=== PATIENT | male | born 1955 | race Caucasian/White ===

== ENCOUNTER 2017-01-19 13:11 | Inpatient (IN) | payer MEDICARE ==
[~2017-01-19] VITALS: Ht 185.4 cm; Wt 121.8 kg
[~2017-01-19 13:11] MED LIST: HYDR10TA16 PO; LISI-366 PO
[2017-01-19 13:28] VITALS: BP 114/69; PULSE 74; RESP 18; O2SAT 97
[2017-01-19] MEDS ORDERED: SODIUM CHLORIDE 0.9% FLUSH 10 ML FLUSH IVF PRN (13:30)
--- NOTE | 2017-01-19 14:06 | RADRPT ---
EXAM DATE/TIME: 01/19/2017 14:01 [facility] COMPARISON: No previous studies available for comparison. INDICATIONS : Chest pain. MEDICAL HISTORY : Skin cancer. SURGICAL HISTORY : None. ENCOUNTER: Initial ACUITY: 1 day PAIN SCORE: 3/10 LOCATION: Left upper chest FINDINGS: A single view of the chest demonstrates the lungs to be symmetrically aerated without evidence of mas s, infiltrate or effusion. The cardiomediastinal contours are unremarkable. Osseous structures are intact. CONCLUSION: No evidence of acute cardiopulmonary disease. Michele Rosenbaum MD on January 19, 2017 at 14:03 Board Certified Radiologist. This report was verified electronically.
[2017-01-19 14:08] LABS: AUTOMATED NEUTROPHIL # 5.5 TH/MM3 (1.8-7.7); BASOPHIL % 0.4 % (0.0-2.0); EOSINOPHIL # 0.1 TH/MM3 (0-0.4); EOSINOPHIL % 1.7 % (0.0-4.0); HEMATOCRIT 37.8 % (39.0-51.0); HEMOGLOBIN 12.6 GM/DL (13.0-17.0); LYMPH % 14.8 % (9.0-44.0); LYMPHOCYTE # 1.1 TH/MM3 (1.0-4.8); MEAN CELL VOLUME 93.3 FL (80.0-100.0); MEAN CORPUSCULAR HGB CONC 33.3 % (32.0-36.0); MEAN PLATELET VOLUME 9.1 FL (7.0-11.0); MONO % 8.6 % (0.0-8.0); MONOCYTE # 0.6 TH/MM3 (0-0.9); NEUT % 74.5 % (16.0-70.0); PLATELET COUNT 233 TH/MM3 (150-450); RED BLOOD COUNT 4.05 MIL/MM3 (4.50-5.90); RED CELL DISTRIBUTION WIDTH 13.8 % (11.6-17.2); WHITE BLOOD COUNT 7.3 TH/MM3 (4.0-11.0)
[2017-01-19 14:29] LABS: TROPONIN I 0.07 NG/ML (0.02-0.05)
--- NOTE | 2017-01-19 14:54 | PD ---
HPI Chief Complaint: Dizziness Time Seen by Provider: 13:30 Travel History International Travel<30 days: No Contact w/Intl Traveler<30days: No Traveled to known affect area: No History of Present Illness HPI This patient was at a junkyard trying to salvage car parts. He was lying underneath a car for while. When he stood up he felt lightheaded and dizzy. He then developed a left upper chest discomfort and became diaphoretic. This lasted for several minutes and resolved spontaneously. There were no alleviating factors. He did not have syncope. He denies head injury. Duration was several minutes. He is currently pain-free. No exacerbating factors. He denies history of cardiac disease. His were of moderate severity. PFSH Past Medical History Arthritis: No Asthma: No Autoimmune Disease: No Blood Disorders: No Anxiety: Yes Depression: Yes Heart Rhythm Problems: No Cancer: Yes (SKIN ,NECK) Cardiovascular Problems: Yes (htn ) High Cholesterol: No Chemotherapy: No Chest Pain: No Congestive Heart Failure: No COPD: No Cerebrovascular Accident: No Diabetes: No Diminished Hearing: No Endocrine: No GERD: No Glaucoma: No Genitourinary: No Headaches: No Hepatitis: No Hiatal Hernia: No Hypertension: Yes Immune Disorder: No Kidney Stones: No Musculoskeletal: No Neurologic: No Psychiatric: Yes Respiratory: Yes Myocardial Infarction: No Radiation Therapy: No Renal Failure: No Seizures: No Sickle Cell Disease: No Sleep Apnea: Yes Thyroid Disease: No Ulcer: No Past Surgical History Abdominal Surgery: No AICD: No Cardiac Surgery: No Ear Surgery: No Endocrine Surgery: No Eye Surgery: No Genitourinary Surgery: No Gynecologic Surgery: No Joint Replacement: No Oral Surgery: No Pacemaker: No Thoracic Surgery: No Other Surgery: Yes (neck skin ca ) Social History Alcohol Use: No Tobacco Use: No Substance Use: No Allergies-Medications (Allergen,Severity, Reaction): Coded Allergies: No Known Allergies (Verified , 10/05/11) Reported Meds & Prescriptions Reported Meds & Active Scripts Active Reported Lortab 10/500 (Acetaminophen/Hydrocodone Bitart) 10 Mg/500 Mg Tab 1 Tab PO Q6HPRN FOR PAIN Lisinopril 40 Mg Tab 40 Mg PO DAILY Review of Systems General / Constitutional: No: Fever Eyes: No: Visual changes HENT: Positive: Lightheadedness, No: Headaches Cardiovascular: Positive: Chest Pain or Discomfort, Diaphoresis Respiratory: No: Shortness of Breath Gastrointestinal: No: Abdominal Pain Genitourinary: No: Dysuria Musculoskeletal: No: Pain Skin: No Rash Neurologic: No: Weakness Psychiatric: No: Depression Endocrine: No: Polydipsia Hematologic/Lymphatic: No: Easy Bruising Physical Exam Narrative GENERAL: Well-nourished, well-developed patient in no apparent distress. SKIN: Focused skin assessment reveals multiple surgical scars from his skin cancer history. Skin is Warm and dry. HEAD: Atraumatic. Normocephalic. EYES: Pupils equal and round. No scleral icterus. No injection or drainage. ENT: No nasal bleeding or discharge. Mucous membranes pink and moist. NECK: Trachea midline. No JVD. CARDIOVASCULAR: Regular rate and rhythm. No murmur appreciated. RESPIRATORY: No accessory muscle use. Clear to auscultation. Breath sounds equal bilaterally. GASTROINTESTINAL: Abdomen soft, non-tender, nondistended. Hepatic and splenic margins not palpable. MUSCULOSKELETAL: No obvious deformities. No clubbing. No cyanosis. No edema. NEUROLOGICAL: Awake and alert. No obvious cranial nerve deficits. Motor grossly within normal limits. Normal speech. PSYCHIATRIC: Appropriate mood and affect; insight and judgment normal. Data Data Last Documented VS Vital Signs Date Time Temp Pulse Resp B/P (MAP) Pulse Ox O2 Delivery O2 Flow Rate FiO2 01/19/17 13:33 77 01/19/17 13:28 18 114/69 (84) 97 Orders Orders Electrocardiogram (01/19/17 13:29) Complete Blood Count With Diff (01/19/17 13:29) Ckmb (Isoenzyme) Profile (01/19/17 13:29) Troponin I (01/19/17 13:29) Ecg Monitoring (01/19/17 13:29) Iv Access Insert/Monitor (01/19/17 13:29) Oximetry (01/19/17 13:29) Sodium Chloride 0.9% Flush (Ns Flush) (01/19/17 13:30) Basic Metabolic Panel (Bmp) (01/19/17 13:43) Chest, Single Ap (01/19/17 ) Admit Order (Ed Use Only) (01/19/17 15:50) Labs Laboratory Tests Test 01/19/17 13:45 01/19/17 13:54 White Blood Count 7.3 TH/MM3 Red Blood Count 4.05 MIL/MM3 Hemoglobin 12.6 GM/DL Hematocrit 37.8 % Mean Corpuscular Volume 93.3 FL Mean Corpuscular Hemoglobin 31.0 PG Mean Corpuscular Hemoglobin Concent 33.3 % Red Cell Distribution Width 13.8 % Platelet Count 233 TH/MM3 Mean Platelet Volume 9.1 FL Neutrophils (%) (Auto) 74.5 % Lymphocytes (%) (Auto) 14.8 % Monocytes (%) (Auto) 8.6 % Eosinophils (%) (Auto) 1.7 % Basophils (%) (Auto) 0.4 % Neutrophils # (Auto) 5.5 TH/MM3 Lymphocytes # (Auto) 1.1 TH/MM3 Monocytes # (Auto) 0.6 TH/MM3 Eosinophils # (Auto) 0.1 TH/MM3 Basophils # (Auto) 0.0 TH/MM3 CBC Comment DIFF FINAL Differential Comment Total Creatine Kinase 65 U/L Troponin I 0.07 NG/ML Blood Urea Nitrogen 26 MG/DL Creatinine 1.57 MG/DL Random Glucose 111 MG/DL Calcium Level 9.3 MG/DL Sodium Level 141 MEQ/L Potassium Level 4.4 MEQ/L Chloride Level 105 MEQ/L Carbon Dioxide Level 22.8 MEQ/L Anion Gap 13 MEQ/L Estimat Glomerular Filtration Rate 45 ML/MIN MDM Medical Decision Making Medical Screen Exam Complete: Yes Emergency Medical Condition: Yes Medical Record Reviewed: Yes Differential Diagnosis Differential diagnosis includes VA, angina, pericarditis, pleurisy, GERD, anxiety. Narrative Course I have reviewed the patient's electronic medical record. IV placed I reviewed the EKG which shows sinus rhythm and no acute ST elevation I reviewed the chest x-ray which is normal Extended cardiac monitoring shows sinus rhythm without ectopy CBC is normal Metabolic profile is normal CK is normal Troponin is 0.07, minimal elevation probable no clinical significance Coagulation studies are normal Patient will be a 23 hour observation on telemetry to rule out cardiac cause of his symptoms. He has a presyncopal episode. I reviewed with the hospitalist Diagnosis Primary Impression: Chest pain in adult Additional Impression: Pre-syncope Admitting Information Admitting Physician Requests: Observation Edilberto Zafar MD Jan 19, 2017 14:54
[2017-01-19 14:57] LABS: BICARBONATE 22.8 MEQ/L (21.0-32.0); CALCIUM 9.3 MG/DL (8.5-10.1); CREATININE 1.57 MG/DL (0.60-1.30)
--- NOTE | 2017-01-19 16:09 | HHI.HP ---
[facility] Dominik Morse DO Admission Diagnosis chest pain, presyncopal episode Diagnoses: Travel History International Travel<30 Days: No Contact w/Intl Traveler <30 Da: No Traveled to Known Affected Are: No History of Present Illness Patient is 61-year-old male with past medical history of hypertension, depression, chronic back and knee pain, squamous cell carcinoma presents to the emergency room because of chest pain. Patient states that he was at the junk yard getting some used car parts fand was underneath a car taking out a bolt when he suddenly felt lightheaded and dizzy. He sat down for a few minutes then became diaphoretic and started experiencing pain on the left shoulder. He also noted some shortness of breath. He denied any nausea or vomiting or abdominal pain. He also said that he saw "stars ". He states that he was sitting in the shade and there was a very nice breeze however he was still diaphoretic. He denies any burning with urination or increased urinary frequency. Currently he is chest pain-free. He has never had a heart attack in the past. He has no other complaints. He denies any sore throat, runny nose , cough. 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 Past Surgical History Removal of lymph nodes and salivary gland due to metastatic squamous Carcinoma Right knee surgery Reported Medications Reported Meds & Active Scripts Active Reported Tramadol (Tramadol HCl) 50 Mg Tab 50 Mg PO Q4H PRN Allergies: Coded Allergies: No Known Allergies (Verified , 10/05/11) Family History Mother is 83 living has a history of [place] and CHF. Father from CHF. Brother and had diabetes Social History Denies any smoking history, denies illegal drug use or alcohol use. Physical Exam Vital Signs Vital Signs Date Time Temp Pulse Resp B/P (MAP) Pulse Ox O2 Delivery O2 Flow Rate FiO2 01/19/17 13:33 77 01/19/17 13:28 74 18 114/69 (92) 97 Physical Exam GENERAL: This is a well-nourished, well-developed patient, in no apparent distress. SKIN: Well-healed scar on the right side of the neck and on the right shoulder HEAD: Atraumatic. Normocephalic. No temporal or scalp tenderness. EYES: Pupils equal round and reactive. Extraocular motions intact. No scleral icterus. No injection or drainage. ENT: Nose without drainage. Throat without erythema, tonsillar hypertrophy or exudate. Mucous membranes somewhat dry. Uvula midline. Airway patent. NECK: Trachea midline. No JVD or lymphadenopathy. Supple, nontender, no meningeal signs. CARDIOVASCULAR: Regular rate and rhythm without murmurs. Nonreproducible chest pain. RESPIRATORY: Clear to auscultation. Breath sounds equal bilaterally. No wheezes GASTROINTESTINAL: Abdomen soft, non-tender, nondistended. No palpable masses. No guarding. MUSCULOSKELETAL: Extremities without edema. No joint tenderness, effusion, or edema noted. No calf tenderness. Negative Homans sign bilaterally. NEUROLOGICAL: Awake and alert. Cranial nerves II through XII intact. Motor and sensory grossly within normal limits. Five out of 5 muscle strength in all muscle groups. Normal speech. Laboratory Laboratory Tests Test 01/19/17 13:45 01/19/17 13:54 White Blood Count 7.3 Red Blood Count 4.05 Hemoglobin 12.6 Hematocrit 37.8 Mean Corpuscular Volume 93.3 Mean Corpuscular Hemoglobin 31.0 Mean Corpuscular Hemoglobin Concent 33.3 Red Cell Distribution Width 13.8 Platelet Count 233 Mean Platelet Volume 9.1 Neutrophils (%) (Auto) 74.5 Lymphocytes (%) (Auto) 14.8 Monocytes (%) (Auto) 8.6 Eosinophils (%) (Auto) 1.7 Basophils (%) (Auto) 0.4 Neutrophils # (Auto) 5.5 Lymphocytes # (Auto) 1.1 Monocytes # (Auto) 0.6 Eosinophils # (Auto) 0.1 Basophils # (Auto) 0.0 CBC Comment DIFF FINAL Differential Comment Total Creatine Kinase 65 Troponin I 0.07 Blood Urea Nitrogen 26 Creatinine 1.57 Random Glucose 111 Calcium Level 9.3 Sodium Level 141 Potassium Level 4.4 Chloride Level 105 Carbon Dioxide Level 22.8 Anion Gap 13 Estimat Glomerular Filtration Rate 45 Result Diagram: 01/19/17 1345 01/19/17 1354 Imaging Last Impressions Chest X-Ray 01/19/17 0000 Signed Impressions: Service Date/Time: Thursday, January 19, 2017 14:01 - CONCLUSION: No evidence of acute cardiopulmonary disease. MD Jose Luis Echeverria VTE Risk Assessment Caprini VTE Risk Assessment: Mod/High Risk (score >= 2) Caprini Risk Assessment Model Point Value = 1 Point Value = 2 Point Value = 3 Point Value = 5 Age 41-60 Minor surgery BMI > 25 kg/m2 Swollen legs Varicose veins or History of unexplained or recurrent spontaneous Oral contraceptives or hormone replacement Sepsis (< 1 month) Serious lung disease, including pneumonia (< 1 month) Abnormal pulmonary function Acute myocardial infarction Congestive heart failure (< 1 month) History of inflammatory bowel disease Medical patient at bed rest Age 61-74 Arthroscopic surgery Major open surgery (> 45 min) Laparoscopic surgery (> 45 min) Malignancy Confined to bed (> 72 hours) Immobilizing plaster cast Central venous access Age >= 75 History of VTE Family history of VTE Factor V Leiden Prothrombin [id number] Lupus anticoagulant Anticardiolipin antibodies Elevated serum homocysteine Heparin-induced thrombocytopenia Other congenital or acquired thrombophilia Stroke (< 1 month) Elective arthroplasty Hip, pelvis, or leg fracture Acute spinal cord injury (< 1 month) Prophylaxis Regimen Total Risk Factor Score Risk Level Prophylaxis Regimen 0-1 Low Early ambulation 2 Moderate Order ONE of the following: *Sequential Compression Device (SCD) *Heparin 5000 units SQ BID 3-4 Higher Order ONE of the following medications: *Heparin 5000 units SQ TID *Enoxaparin/Lovenox 40 mg SQ daily (WT < 150 kg, CrCl > 30 mL/min) *Enoxaparin/Lovenox 30 mg SQ daily (WT < 150 kg, CrCl > 10-29 mL/min) *Enoxaparin/Lovenox 30 mg SQ BID (WT < 150 kg, CrCl > 30 mL/min) AND/OR *Sequential Compression Device (SCD) 5 or more Highest Order ONE of the following medications: *Heparin 5000 units SQ TID (Preferred with Epidurals) *Enoxaparin/Lovenox 40 mg SQ daily (WT < 150 kg, CrCl > 30 mL/min) *Enoxaparin/Lovenox 30 mg SQ daily (WT < 150 kg, CrCl > 10-29 mL/min) *Enoxaparin/Lovenox 30 mg SQ BID (WT < 150 kg, CrCl > 30 mL/min) AND *Sequential Compression Device (SCD) Assessment and Plan Assessment and Plan Chest pain: Initial troponin 0.07. We'll trend cardiac enzymes. Monitor on telemetry. Patient did have chest pain with radiation to left shoulder upon presentation and was diaphoretic, due to his elevated troponin I we'll go ahead and consult cardiology for further evaluation and recommendation. I have reviewed EKG and it shows sinus rhythm with no ST elevations. Morphine, nitroglycerin as needed for chest pain. I will give him a dose of aspirin now and daily. I have added Coreg 3.25 mg by mouth twice a day. Hypertension: Patient states he is on lisinopril however Remember the dose. His will call the nurse and give her history of some medication. Hold lisinopril for now due to RENA. clonidine prn BP>160/90 RENA: NS@84ml/hr. monitor Cr closely. Repeat BMP in AM. encourage po hydration DVT proph: lovenox Awaiting for RN to enter med rec prior to resuming pt's home meds. Code Status full Discussed Condition With patient, daughter and ED physician Nichole Solan MD Jan 19, 2017 16:09
[2017-01-19 16:12] VITALS: BP 119/62; PULSE 64; RESP 12; O2SAT 98
[2017-01-19] MEDS ORDERED: TRAM50TA PO (16:12)
[2017-01-19] MEDS ORDERED: SODIUM CHLORIDE 0.9% FLUSH 10 ML FLUSH IV FLUSH PRN (16:30)
[2017-01-19] MEDS ORDERED: LACTULOSE SYRUP 20 GM/30 ML CUP PO PRN (16:30)
[2017-01-19] MEDS ORDERED: SENNOSIDES 8.6 MG TAB PO PRN (16:30)
[2017-01-19] MEDS ORDERED: MAGNESIUM HYDROXIDE SUSP 30 ML CUP PO PRN (16:30)
[2017-01-19] MEDS ORDERED: BISACODYL 10 MG SUPP RECTAL PRN (16:30)
[2017-01-19] MEDS ORDERED: ONDANSETRON HCL 4 MG/2 ML VIAL IVP PRN (16:30)
[2017-01-19] MEDS ORDERED: ASPIRIN 325 MG TAB PO ONE (16:30)
[2017-01-19] MEDS ORDERED: NALOXONE HCL 0.4 MG/ML AMP IV PUSH PRN (16:30)
[2017-01-19] MEDS ORDERED: LISI40TA PO (16:38)
[2017-01-19] MEDS ORDERED: ESCI20TA PO (16:38)
[2017-01-19] MEDS ORDERED: LISI-515 PO (16:38)
[2017-01-19] MEDS ORDERED: cloNIDine HCL 0.1 MG TAB PO PRN (16:45)
[2017-01-19] MEDS ORDERED: ENOXAPARIN SODIUM 40 MG/0.4 ML SYRINGE SQ SCH (17:00)
[2017-01-19] MEDS ORDERED: NITROGLYCERIN 2% OINT 1 GM PACKET TOPICAL PRN (17:00)
[2017-01-19 17:26] VITALS: BP 137/79; PULSE 63; RESP 16; TEMP 97.8; O2SAT 98
--- NOTE | 2017-01-19 19:21 | RADRPT ---
EXAM DATE/TIME: 01/19/2017 18:41 [facility] COMPARISON: No previous studies available for comparison. INDICATIONS : Syncope. MEDICAL HISTORY : Hypertension. Carcinoma, squamous cell. Sleep apnea. Psychiatric problems. SURGICAL HISTORY : Tumor removed on right side of neck. ENCOUNTER: Initial ACUITY: 1 day PAIN SCORE: 0/10 LOCATION: Bilateral neck PEAK SYSTOLIC VELOCITIES (cm/sec): ICA/CCA RATIO: Right: 1.0 Left: 1.2 ICA: Right: 98 Left: 106 CCA: Right: 94 Left: 92 ECA: Right: 161 Left: 165 VERTEBRAL: Right: 41 antegrade Left: 42 antegrade Elevated flow velocities and ICA/CCA ratios have been found to correlate with increased degrees of vessel stenosis, calculated as percentage of diameter relative to a normal segment of distal ICA/CCA FINDINGS: RIGHT CAROTID: No significant stenosis is visualized. The waveforms are within normal limits. LEFT CAROTID: No significant stenosis is visualized. The waveforms are within normal limits. VERTEBRAL ARTERIES: Antegrade flow is seen in both vertebral arteries. MISCELLANEOUS: None. CONCLUSION: 1. No evidence for hemodynamically significant stenosis of either carotid artery. 2. Antegrade flow in the bilateral vertebral arteries. Ever Corea MD on January 19, 2017 at 19:19 Board Certified Radiologist. This report was verified electronically.
[2017-01-19 19:30] VITALS: PULSE 63
[2017-01-19 19:33] VITALS: BP 128/76; PULSE 64; RESP 18; TEMP 98.3; O2SAT 97
[2017-01-19] MEDS: SODIUM CHLOR 0.9% 1000 ML INJ 1,000 ML IV SCH (20:07)
--- NOTE | 2017-01-19 20:54 | MB ---
cc: BRAD REID M.D. DATE OF CONSULTATION 01/19/17 HISTORY OF PRESENT ILLNESS Santy is a very pleasant 61-year-old gentleman with history of hypertension was working on a car today, stood up quickly, developed significant lightheadedness and left arm discomfort, also some chest discomfort and shortness of breath. His friends said he "did not look." He therefore went to the [facility]. He also notes significant diaphoresis episode lasted several minutes, resolved spontaneously. He did not have full syncope. He otherwise denies any fevers, chills, cough, GI or bleeding, PND, orthopnea. PAST MEDICAL HISTORY Includes anxiety, depression, skin and neck cancer, right carotid endarterectomy with significant adenopathy associated with a carotid stenosis, history of hypertension, recent lymph node biopsy, history of sleep apnea, history of skin cancer in the neck. SOCIAL HISTORY Denies tobacco or alcohol use. ALLERGIES None. MEDICATIONS Prior to admission 1. Lortab. 2. Lisinopril 40 daily. Medications in the hospital 1. Aspirin 325 daily. 2. Carvedilol 3.25 q. 12 hours. 3. Lovenox 40 subcu q. 24 hours. 4. Half inch nitro paste q. 6 hours. PHYSICAL EXAMINATION VITAL SIGNS: Blood pressure 137/79, pulse 63, temperature 97.8, respiratory rate 16. GENERAL: He is alert and oriented times three, in no distress. NECK: Supple. No JVD or bruit. CARDIOVASCULAR: S1-S2. No murmurs, rubs or gallops. LUNGS: Clear to auscultation bilaterally. ABDOMEN: Soft, nontender, nondistended. Positive bowel sounds. EXTREMITIES: No lower extremity edema. LABORATORY DATA White count 7.3, hemoglobin 12.6, hematocrit 37.8, platelet count 233. Troponin is 0.07. CK 65, sodium 141, potassium 4.4, chloride 105, bicarb 22.8, BUN 26, creatinine 1.57. CARDIOLOGY STUDIES EKG shows normal sinus rhythm. Borderline left anterior fascicular block, possible lateral ischemia. IMAGING STUDIES Chest x-ray no evidence of acute cardiopulmonary disease. FINAL DIAGNOSIS 1. Non-STEMI. 2. Near syncope. 3. Dyspnea. 4. Acute renal failure. 5. Dyspnea. 6. Chronic renal insufficiency. 7. History of carotid stenosis. 8. History of skin cancer complicated by carotid stenosis. 9. Anemia. DISCUSSION At this point in time it is indeterminate whether the patient truly has a non-STEMI versus nonspecifically elevated troponin due to chronic renal insufficiency and/or acute renal failure, however he does have multiple risk factors including male gender, age greater than 45, chronic renal insufficiency and hypertension as well as lateral ischemic changes on his EKG which gives him high pre-test probability for significant coronary artery disease. Therefore, I do think he should have left heart catheterization done electively on Saturday, January 20, 2017 assuming there are no significant findings on his neurologic workup. I do think he should have a neurology consult and carotid ultrasound, 2-D echo. He appears to be optimally medicated currently with aspirin, Coreg, nitro paste and DVT prophylaxis- Lovenox. Also, recommend continued telemetry. MD ALVIN Owen/CONG /6:09 PM /8:30 PM
[2017-01-19] MEDS: DOCUSATE SODIUM 50 MG/SENNA 8.6 MG TAB PO SCH (21:00)
[2017-01-19] MEDS: SODIUM CHLORIDE 0.9% FLUSH 10 ML FLUSH IV FLUSH SCH (21:00)
[2017-01-19 21:17] LABS: TROPONIN I 0.98 NG/ML (0.02-0.05)
[2017-01-19] MEDS: CARVEDILOL 3.125 MG TAB PO SCH (21:38)
[2017-01-19] MEDS: traMADol HCL 50 MG TAB PO PRN (22:58)
[2017-01-20] VITALS (19 sets, daily range): BP systolic 104–150; BP diastolic 53–80; PULSE 55–74; RESP 16–18; TEMP 97.8–99; O2SAT 95–100
[2017-01-20 01:44] LABS: TROPONIN I 0.7 NG/ML (0.02-0.05)
[2017-01-20] MEDS: SODIUM CHLOR 0.9% 1000 ML INJ 1,000 ML IV SCH ×3 (04:55→22:59)
[2017-01-20 08:41] LABS: CALCIUM 8.8 MG/DL (8.5-10.1); CREATININE 1.29 MG/DL (0.60-1.30)
[2017-01-20] MEDS ORDERED: HEPARIN SODIUM - IV 10,000 UNITS/10 ML VIAL IV ONE (08:45)
[2017-01-20] MEDS ORDERED: ASPIRIN 325 MG TAB PO SCH (09:00)
--- NOTE | 2017-01-20 09:07 | EKG ---
Date Performed: 01/19/2017 Time Performed: 13:46:27 PTAGE: 61 years EKG: Sinus rhythm WITH FIRST DEGREE AV BLOCK BORDERLINE LEFT AXIS DEVIATION NONSPECIFIC ST & T-WAVE ABNORMALITY Compar ed to prior tracing no significant change ABNORMAL ECG PREVIOUS TRACING : 04/12/2005 07.43 DOCTOR: Ernesto Crowe Interpretating Date/Time 01/20/2017 09:05:41
[2017-01-20] MEDS: ESCITALOPRAM OXALATE 20 MG TAB PO SCH (09:36)
[2017-01-20] MEDS: DOCUSATE SODIUM 50 MG/SENNA 8.6 MG TAB PO SCH ×2 (09:38→20:45)
[2017-01-20] MEDS: CARVEDILOL 3.125 MG TAB PO SCH ×2 (09:38→20:45)
[2017-01-20] MEDS: SODIUM CHLORIDE 0.9% FLUSH 10 ML FLUSH IV FLUSH SCH ×2 (09:39→20:45)
[2017-01-20 09:54] LABS: PROTHROMBIN TIME - PATIENT 11.4 SEC (9.8-11.6)
[2017-01-20 09:56] LABS: HEMATOCRIT 35.6 % (39.0-51.0); MEAN CELL VOLUME 92.3 FL (80.0-100.0); MEAN CORPUSCULAR HGB CONC 33.6 % (32.0-36.0); MEAN PLATELET VOLUME 9.3 FL (7.0-11.0); PLATELET COUNT 208 TH/MM3 (150-450); RED BLOOD COUNT 3.86 MIL/MM3 (4.50-5.90); RED CELL DISTRIBUTION WIDTH 13.5 % (11.6-17.2); WHITE BLOOD COUNT 7.1 TH/MM3 (4.0-11.0)
--- NOTE | 2017-01-20 10:21 | PD.CARD.PN ---
Subjective Subjective Remarks alert in nad, denies chest pain Objective Medications Current Medications Medications (Trade) Dose Ordered Sig/Edilberto Route Start Time Stop Time Status Last Admin (NS Flush) 2 ml UNSCH PRN IV FLUSH 01/19/17 16:30 (NS Flush) 2 ml BID IV FLUSH 01/19/17 21:00 01/20/17 09:39 (Zofran Inj) 4 mg Q6H PRN IVP 01/19/17 16:30 (Narcan Inj) 0.4 mg UNSCH PRN IV PUSH 01/19/17 16:30 (Nahed-Colace) 1 tab BID PO 01/19/17 21:00 01/20/17 09:38 (Milk Of Magnesia Liq) 30 ml Q12H PRN PO 01/19/17 16:30 (Senokot) 17.2 mg Q12H PRN PO 01/19/17 16:30 (Dulcolax Supp) 10 mg DAILY PRN RECTAL 01/19/17 16:30 (Lactulose Liq) 30 ml DAILY PRN PO 01/19/17 16:30 (Morphine Inj) 1 mg Q4H PRN IM 01/19/17 16:30 (Nitroglycerin 2% Oint) 0.5 inch Q6H PRN TOPICAL 01/19/17 17:00 (Aspirin) 325 mg DAILY PO 01/20/17 09:00 01/20/17 09:36 (Coreg) 3.125 mg Q12HR PO 01/19/17 21:00 01/20/17 09:38 (Catapres) 0.1 mg Q6H PRN PO 01/19/17 16:45 Sodium Chloride 1,000 ml @ 84 mls/hr [id number] IV 01/19/17 17:00 01/20/17 04:55 (Lexapro) 20 mg DAILY PO 01/20/17 09:00 01/20/17 09:36 (Ultram) 50 mg Q4H PRN PO 01/19/17 23:00 01/19/17 22:58 (Heparin Inj) 5,000 units UNSCH PRN IV 01/20/17 14:45 (Heparin Inj) 2,500 units UNSCH PRN IV 01/20/17 14:45 Heparin Sodium/ Dextrose 250 ml @ 10 mls/hr TITRATE PRN IV 01/20/17 08:45 Vital Signs / I&O Vital Signs Date Time Temp Pulse Resp B/P (MAP) Pulse Ox O2 Delivery O2 Flow Rate FiO2 01/20/17 07:33 98.2 60 18 117/66 (83) 95 01/20/17 04:49 98.6 57 18 104/53 (70) 95 01/20/17 03:43 55 01/20/17 00:12 18 01/20/17 00:08 98.1 61 18 112/57 (75) 96 01/20/17 00:04 59 01/19/17 19:33 98.3 64 18 128/76 (93) 97 01/19/17 19:30 63 01/19/17 17:33 (98) 01/19/17 17:26 97.8 63 16 137/79 (98) 98 01/19/17 16:12 64 12 119/62 (81) 98 Room Air 01/19/17 13:33 77 01/19/17 13:28 74 18 114/69 (84) 97 I/O 01/19/17 01/19/17 01/19/17 01/20/17 01/20/17 01/20/17 07:00 15:00 23:00 07:00 15:00 23:00 Intake Total 1120 ml Output Total 200 ml Balance 920 ml Intake Oral 120 ml IV Total 1000 ml Output Urine Total 200 ml # Voids 1 # Bowel Movements 0 Physical Exam GENERAL: SKIN: Warm and dry. HEAD: Normocephalic. EYES: No scleral icterus. No injection or drainage. NECK: Supple, trachea midline. No JVD or lymphadenopathy. CARDIOVASCULAR: Regular rate and rhythm without murmurs, gallops, or rubs. RESPIRATORY: Breath sounds equal bilaterally. No accessory muscle use. GASTROINTESTINAL: Abdomen soft, non-tender, nondistended. MUSCULOSKELETAL: No cyanosis, or edema. BACK: Nontender without obvious deformity. No CVA tenderness. Laboratory Laboratory Tests Test 01/19/17 13:45 01/19/17 13:54 01/19/17 20:22 01/20/17 01:00 White Blood Count 7.3 TH/MM3 Red Blood Count 4.05 MIL/MM3 Hemoglobin 12.6 GM/DL Hematocrit 37.8 % Mean Corpuscular Volume 93.3 FL Mean Corpuscular Hemoglobin 31.0 PG Mean Corpuscular Hemoglobin Concent 33.3 % Red Cell Distribution Width 13.8 % Platelet Count 233 TH/MM3 Mean Platelet Volume 9.1 FL Neutrophils (%) (Auto) 74.5 % Lymphocytes (%) (Auto) 14.8 % Monocytes (%) (Auto) 8.6 % Eosinophils (%) (Auto) 1.7 % Basophils (%) (Auto) 0.4 % Neutrophils # (Auto) 5.5 TH/MM3 Lymphocytes # (Auto) 1.1 TH/MM3 Monocytes # (Auto) 0.6 TH/MM3 Eosinophils # (Auto) 0.1 TH/MM3 Basophils # (Auto) 0.0 TH/MM3 CBC Comment DIFF FINAL Differential Comment Total Creatine Kinase 65 U/L 78 U/L 75 U/L Troponin I 0.07 NG/ML 0.98 NG/ML 0.70 NG/ML Blood Urea Nitrogen 26 MG/DL Creatinine 1.57 MG/DL Random Glucose 111 MG/DL Calcium Level 9.3 MG/DL Sodium Level 141 MEQ/L Potassium Level 4.4 MEQ/L Chloride Level 105 MEQ/L Carbon Dioxide Level 22.8 MEQ/L Anion Gap 13 MEQ/L Estimat Glomerular Filtration Rate 45 ML/MIN Test 01/20/17 08:04 01/20/17 09:20 01/20/17 09:37 Blood Urea Nitrogen 21 MG/DL Creatinine 1.29 MG/DL Random Glucose 91 MG/DL Calcium Level 8.8 MG/DL Sodium Level 141 MEQ/L Potassium Level 5.1 MEQ/L Chloride Level 108 MEQ/L Carbon Dioxide Level 26.0 MEQ/L Anion Gap 7 MEQ/L Estimat Glomerular Filtration Rate 56 ML/MIN Prothrombin Time 11.4 SEC Prothromb Time International Ratio 1.0 RATIO Activated Partial Thromboplast Time 25.5 SEC White Blood Count 7.1 TH/MM3 Red Blood Count 3.86 MIL/MM3 Hemoglobin 12.0 GM/DL Hematocrit 35.6 % Mean Corpuscular Volume 92.3 FL Mean Corpuscular Hemoglobin 31.0 PG Mean Corpuscular Hemoglobin Concent 33.6 % Red Cell Distribution Width 13.5 % Platelet Count 208 TH/MM3 Mean Platelet Volume 9.3 FL Assessment and Plan Problem List: (1) NSTEMI (non-ST elevated myocardial infarction) ICD Codes: I21.4 - Non-ST elevation (NSTEMI) myocardial infarction (2) Pre-syncope ICD Codes: R55 - Syncope and collapse Status: Acute (3) Chest pain in adult ICD Codes: R07.9 - Chest pain, unspecified Status: Acute Assessment and Plan 1.) NSTEMI - continue aspirin, assymptomatic, f/u neuology consult, [facility] 01/21/17 if no neurologic contraindications Ernesto Crowe MD Jan 20, 2017 10:21
[2017-01-20] MEDS: traMADol HCL 50 MG TAB PO PRN ×3 (11:08→20:46)
[2017-01-20] MEDS: HEPARIN-D5W 25,000 U/250 ML 250 ML IV PRN (11:20)
--- NOTE | 2017-01-20 13:11 | EKG ---
Date Performed: 01/19/2017 Time Performed: 19:45:42 PTAGE: 61 years EKG: Sinus rhythm WITH FIRST DEGREE AV BLOCK T-WAVE ABNORMALITY, CONSIDER LATERAL ISCHEMIA ABNORMAL ECG PREVIOUS TRACING : 01/19/2017 19.45 No significant change from previous tracing noted. DOCTOR: Sumeet Petersen Interpretating Date/Time 01/21/2017 07:09:50
--- NOTE | 2017-01-20 13:11 | EKG ---
Date Performed: 01/20/2017 Time Performed: 01:06:38 PTAGE: 61 years EKG: Sinus rhythm SEPTAL MYOCARDIAL INFARCTION T-WAVE ABNORMALITY, CONSIDER ANTEROLATERAL ISCHEMIA ABNORMAL ECG PREVIOUS TRACING : 01/19/2017 19.45 Compared to previous tracing, anterolateral T wave abnormal ity is now slightly more pronounced. DOCTOR: Sumeet Petersen Interpretating Date/Time 01/20/2017 13:10:16
--- NOTE | 2017-01-20 13:42 | HHI.PR ---
Subjective Remarks Follow up for NSTEMI. Patient is doing well currently. He was admitted due to chest pain, nausea, vomiting, diaphoresis, dizziness, lightheadedness. No fever , chills. Objective Vitals Vital Signs Date Time Temp Pulse Resp B/P (MAP) Pulse Ox O2 Delivery O2 Flow Rate FiO2 01/20/17 13:04 71 01/20/17 12:09 16 01/20/17 12:00 68 01/20/17 11:30 98.0 59 16 135/80 (98) 98 01/20/17 11:30 64 01/20/17 07:33 98.2 60 18 117/66 (83) 95 01/20/17 04:49 98.6 57 18 104/53 (70) 95 01/20/17 03:43 55 01/20/17 00:08 98.1 61 18 112/57 (75) 96 01/20/17 00:04 59 01/19/17 19:33 98.3 64 18 128/76 (93) 97 01/19/17 19:30 63 01/19/17 17:33 (98) 01/19/17 17:26 97.8 63 16 137/79 (98) 98 01/19/17 16:12 64 12 119/62 (81) 98 Room Air I/O 01/19/17 01/19/17 01/19/17 01/20/17 01/20/17 01/20/17 07:00 15:00 23:00 07:00 15:00 23:00 Intake Total 1120 ml Output Total 200 ml Balance 920 ml Intake Oral 120 ml IV Total 1000 ml Output Urine Total 200 ml # Voids 1 # Bowel Movements 0 Result Diagram: 01/20/17 0937 01/20/17 0804 Imaging Last Impressions Chest X-Ray 01/19/17 0000 Signed Impressions: Service Date/Time: Thursday, January 19, 2017 14:01 - CONCLUSION: No evidence of acute cardiopulmonary disease. Michele Rosenbaum MD Carotid Artery Ultrasound 01/19/17 0000 Signed Impressions: Service Date/Time: Thursday, January 19, 2017 18:41 - CONCLUSION: 1. No evidence for hemodynamically significant stenosis of either carotid artery. 2. Antegrade flow in the bilateral vertebral arteries. Ever Corea MD Objective Remarks GENERAL: AOX3. NAD. SKIN: Warm and dry. HEAD: Normocephalic. EYES: No scleral icterus. No injection or drainage. NECK: Supple, trachea midline. No JVD or lymphadenopathy. CARDIOVASCULAR: Regular rate and rhythm without murmurs, gallops, or rubs. RESPIRATORY: Breath sounds equal bilaterally. No accessory muscle use. GASTROINTESTINAL: Abdomen soft, non-tender, nondistended. MUSCULOSKELETAL: No cyanosis, or edema. BACK: Nontender without obvious deformity. No CVA tenderness. Procedures None. A/P Problem List: (1) NSTEMI (non-ST elevated myocardial infarction) ICD Code: I21.4 - Non-ST elevation (NSTEMI) myocardial infarction (2) HTN (hypertension) ICD Code: I10 - Essential (primary) hypertension Assessment and Plan Patient is 61-year-old male with past medical history of hypertension, depression, chronic back and knee pain, squamous cell carcinoma presents to the emergency room because of chest pain. Patient states that he was at the junk [place] getting some used car parts fand was underneath a car taking out a bolt when he suddenly felt lightheaded and dizzy. He sat down for a few minutes then became diaphoretic and started experiencing pain on the left shoulder. He also had dyspnea. He was subsequently admitted to the hospital. - NSTEMI - Troponins 0.07, 0.98, 0.70. Currently chest pain free. - Start heparin drip. - Heart healthy diet for now. NPO midnight except for meds. - Continue Aspirin 81mg, Carvedilol 3.125mg Q12hrs. NTG PRN for chest pain. - Will start Atorvastatin 80mg QHS - Appreciate cardiology input (Dr. Choco Crowe) - Pre-syncope - Carotid US unremarkable. I have discussed with neurology. Patient has no focal neurological deficits. - No further neurological work up at this point. Patient can proceed with Cardiac catheterization. - Depression - Continue Lexapro. Full code. Heparin drip. Breanne Mcfadden DO Jan 20, 2017 1:42 pm
[2017-01-20] MEDS ORDERED: ACETAMINOPHEN 325 MG TAB PO PRN (14:00)
[2017-01-20] MEDS ORDERED: HEPARIN SODIUM - IV 10,000 UNITS/10 ML VIAL IV PRN ×2 (14:45)
[2017-01-20] MEDS: ATORVASTATIN 80 MG TAB PO SCH (20:46)
[2017-01-21] VITALS (26 sets, daily range): BP systolic 105–151; BP diastolic 63–115; PULSE 50–76; RESP 14–18; TEMP 98.1–98.5; O2SAT 97–100
[2017-01-21 07:14] LABS: HEMATOCRIT 34.7 % (39.0-51.0); HEMOGLOBIN 11.6 GM/DL (13.0-17.0); MEAN CELL VOLUME 93.5 FL (80.0-100.0); MEAN CORPUSCULAR HEMOGLOBIN 31.2 PG (27.0-34.0); MEAN CORPUSCULAR HGB CONC 33.4 % (32.0-36.0); MEAN PLATELET VOLUME 9.6 FL (7.0-11.0); PLATELET COUNT 206 TH/MM3 (150-450); RED BLOOD COUNT 3.71 MIL/MM3 (4.50-5.90); RED CELL DISTRIBUTION WIDTH 13.4 % (11.6-17.2); WHITE BLOOD COUNT 8.2 TH/MM3 (4.0-11.0)
[2017-01-21 07:38] LABS: BICARBONATE 24.8 MEQ/L (21.0-32.0); CALCIUM 8.3 MG/DL (8.5-10.1); CREATININE 1.29 MG/DL (0.60-1.30)
[2017-01-21] MEDS: CARVEDILOL 3.125 MG TAB PO SCH ×2 (07:40→21:28)
[2017-01-21] MEDS: DOCUSATE SODIUM 50 MG/SENNA 8.6 MG TAB PO SCH ×2 (07:40→21:28)
[2017-01-21] MEDS: traMADol HCL 50 MG TAB PO PRN ×3 (07:40→18:20)
[2017-01-21] MEDS: ESCITALOPRAM OXALATE 20 MG TAB PO SCH (07:40)
[2017-01-21] MEDS: ASPIRIN 81 MG CHEW TAB CHEW SCH (07:41)
[2017-01-21] MEDS: SODIUM CHLORIDE 0.9% FLUSH 10 ML FLUSH IV FLUSH SCH ×2 (07:41→21:00)
[2017-01-21] MEDS: HEPARIN-D5W 25,000 U/250 ML 250 ML IV PRN (10:40)
--- NOTE | 2017-01-21 11:39 | HHI.PR ---
Subjective Remarks Pt feels well, hasn't had any chest pain since admission, no SOB, nausea or vomiting. Objective Vitals Vital Signs Date Time Temp Pulse Resp B/P (MAP) Pulse Ox O2 Delivery O2 Flow Rate FiO2 01/21/17 09:33 18 01/21/17 06:00 50 01/21/17 05:00 56 01/21/17 04:00 52 01/21/17 03:00 98.1 59 14 105/65 (78) 97 01/21/17 03:00 72 01/21/17 02:00 54 01/21/17 01:00 54 01/21/17 00:00 56 01/20/17 23:00 58 01/20/17 23:00 98.4 62 16 116/66 (83) 95 01/20/17 22:00 58 01/20/17 21:00 64 01/20/17 20:00 68 01/20/17 19:32 99.0 68 16 115/64 (81) 98 01/20/17 19:00 68 01/20/17 18:08 58 01/20/17 17:45 59 01/20/17 16:49 62 01/20/17 15:30 64 01/20/17 15:30 97.8 66 16 150/76 (100) 100 01/20/17 14:16 74 01/20/17 13:04 71 01/20/17 12:09 16 01/20/17 12:00 68 I/O 01/20/17 01/20/17 01/20/17 01/21/17 01/21/17 01/21/17 07:00 15:00 23:00 07:00 15:00 23:00 Intake Total 1120 ml 1028 ml 1515 ml Output Total 200 ml Balance 920 ml 1028 ml 1515 ml Intake Oral 120 ml 480 ml 480 ml IV Total 1000 ml 548 ml 1035 ml Output Urine Total 200 ml # Voids 1 4 2 # Bowel Movements 0 Result Diagram: 01/21/1761401/21/17614 Imaging Last Impressions Chest X-Ray 01/19/17 0000 Signed Impressions: Service Date/Time: Thursday, January 19, 2017 14:01 - CONCLUSION: No evidence of acute cardiopulmonary disease. Michele Rosenbaum MD Carotid Artery Ultrasound 01/19/17 0000 Signed Impressions: Service Date/Time: Thursday, January 19, 2017 18:41 - CONCLUSION: 1. No evidence for hemodynamically significant stenosis of either carotid artery. 2. Antegrade flow in the bilateral vertebral arteries. Ever Corea MD Objective Remarks GENERAL: awake and alert, sitting up in bed. EYES: No scleral icterus. No injection or drainage. NECK: Supple, trachea midline. CARDIOVASCULAR: Regular rate and rhythm without murmurs RESPIRATORY: Breath sounds equal bilaterally. No accessory muscle use. GASTROINTESTINAL: Abdomen soft, non-tender, nondistended. MUSCULOSKELETAL: No edema. Procedures None. A/P Problem List: (1) NSTEMI (non-ST elevated myocardial infarction) ICD Code: I21.4 - Non-ST elevation (NSTEMI) myocardial infarction (2) HTN (hypertension) ICD Code: I10 - Essential (primary) hypertension Assessment and Plan Patient is 61-year-old male with past medical history of hypertension, depression, chronic back and knee pain, squamous cell carcinoma presents to the emergency room because of chest pain. Patient states that he was at the junk yard getting some used car parts fand was underneath a car taking out a bolt when he suddenly felt lightheaded and dizzy. He sat down for a few minutes then became diaphoretic and started experiencing pain on the left shoulder. He also had dyspnea. He was subsequently admitted to the hospital. - NSTEMI - Troponins 0.07, 0.98, 0.70. Currently chest pain free. - on heparin drip. - NPO for cardiac cath later today - Continue Aspirin 81mg, Carvedilol 3.125mg Q12hrs. NTG PRN for chest pain. - on Atorvastatin 80mg QHS - Appreciate cardiology input (Dr. Choco Crowe) - ECHO done today, report not yet available. - Pre-syncope - Carotid US unremarkable. Dr. Mcfadden (previous hospitalist on case) discussed with neurology. Patient has no focal neurological deficits. - No further neurological work up at this point. Patient can proceed with Cardiac catheterization. - Depression - Continue Lexapro. Full code. Heparin drip. Discharge Planning scheduled for cardiac cath later today awaiting final recs from cards ECHO report pending Nichole Sloan MD Jan 21, 2017 11:39
[2017-01-21] MEDS ORDERED: HEPARIN-NS/PF INJ 1,000 ML ONE (14:54)
[2017-01-21] MEDS ORDERED: MIDAZOLAM HCL 2 MG/2 ML VIAL ONE (15:09)
[2017-01-21] MEDS ORDERED: HEPARIN SODIUM - IV 10,000 UNITS/10 ML VIAL ONE (15:20)
[2017-01-21] MEDS ORDERED: ADENOSINE STRESS TEST INJ 90 MG/30 ML VIAL ONE (15:27)
--- NOTE | 2017-01-21 15:50 | CATHPROC ---
99 [employer] HIS Report Study Information Study Number Admission Scheduled Start Study Start [id number] Jan 20 2017 8:34AM 01/21/2017 Jan 21 2017 2:31PM [place] [facility] Cardiac Catheterization Admit Source Facility Department Emergency department [facility] - Film Projector Operator Physician and Clinical Staff Initial Ernesto Mathis Transmitter Engineer Kelly Bell,SULAIMAN Recorder Aubrey Warner,RT(R) Recorder Brennan Alcaraz,RT(R) Leonela Granda,RT(R) (BS) Procedures Performed Procedure Location (Site) Vessel Name Coronary Angiograms LCA Left Coronary Coronary Angiograms RCA Right Coronary L Heart Cath LV Gram-hand inj. LV LV Ventricle Wire insertion Fem Art (right) Femoral Art Equipment Time Software Development Project Manager Description Size Mfg Part Number Used/Scraped TRANSDUCER, TRUWAVE [id number] 14:47 MOORE DAVID * Used W/STOCKCOCK *[id number] [id number] *[id number] [id number] *[id number] [id number] *[id number] *[id number] 14:47 MEDLINE INDUSTRIES PACK, CCL CUSTOM * Used *[id number] 14:47 MEDLINE PACER PEN, SKIN DUAL W/ RULER * Used *[id number] 15:19 [employer] MEDICAL SHEATH, FR6.5 PRELUDE 11CM FR 6.5 038ACT Used *[id number] 14:47 [employer] MEDICAL WIRE, 3MMJ .035 180CM 180CM Used *[id number] 14:47 NAMIC MANIFOLD, 4 PORT * Used *[id number] 14:47 NYCOMED OMNIPAQUE, 350 MG, 150ML 150ML [id number] Used [id number] 14:47 [employer] MEDICAL BLANKET,WARM AIR CCL * Used *[id number] 14:47 TERUMO MEDICAL SHEATH, FR4 TERUMO (10CM) FR 4 Used *[id number] 15:19 [employer] PRIME WIRE, VERRATA 185CM 185CM [id number] *[id number] Used Equipment Model, Serial, Lot Number and Expiration Data Description Model Number Serial Number Lot Number Expiration Date PRIME WIRE, VERRATA 185CM [id number] 12-16-2019 SHEATH, FR6.5 PRELUDE 11CM [id number] 09-15-2019 History: Current Medications Medication Dosage/Unit Route Frequency Last Date/Time Taken ASA CARVEDILOL LIPITOR History: Allergies Allergy Reaction No Known Allergies History: Risk Factors Family History of Hypertension Dyslipidemia Previous [place] Previous Heart Failure Premature CAD Yes No Yes No No Prior Valve Prior PCI Prior CABG Surgery No No No Cerebrovascular Peripheral Artery Chronic Lung On Dialysis Diabetes Disease Disease Disease No No No No No History: Symptoms/Diagnosis Selection Items Syncope History: Stress Tests Stress or Imaging Studies Performed No History: Other Disease Selection Items HTN History: Other Current Smoker No Labs Hgb (g/dl) Hct (%) RBC (MIL/MM3) WBC (l/cumm) Platelets (thousands) 11.60-17.00 35.00-51.00 4.00-5.90 4.00-11.00 150.00-450.00 11.6 34.7 3.7 8.2 206 Glucose (mg/dl) BUN (mg/dl) Creatinine (mg/dl) BUN:Creatinine (1:x) 74.00-106.00 7.00-18.00 0.50-1.30 10.00-20.00 91 20 1.2 16.7 Na (meq/l) K (meq/l) Cl (meq/l) CO2 (mmol/L) Ca (mg/dl) 136.00-145.00 3.50-5.10 98.00-107.00 21.00-32.00 8.50-10.10 140 4.7 108 24.8 8.3 PT (sec) PTT (sec) INR (PTT:PT) 9.80-11.60 24.30-30.10 0.90-1.10 11.4 38.3 1 Troponin I (ng/ml) Troponin T (ng/ml) CPK (u/l) CPK-MB (ng/ML) 0.02-0.05 0.40-2.10 26.00-308.00 0.50-3.60 0.98 0.7 75 Not Drawn Medication Medication Total Dose (Bolus/Oral) Medication Total Dosage/Unit 1% XYLOCAINE 20 mL HEPARIN 7200 units VERSED 1 mg Medications (Bolus/Oral) Medication Time Given Dosage/Unit Administered By Reason VERSED 01/21/2017 3:09:48 PM 1 mg Kelly Bell 1 mg VERSED given in lab by Kelly Bell RN in Left Antecubital via Peripheral IV. 1% XYLOCAINE 01/21/2017 3:11:00 PM 20 mL Ernesto Crowe 20 mL 1% XYLOCAINE given in lab by Ernesto Crowe in Right Groin via Subcutaneous. HEPARIN 01/21/2017 3:20:55 PM 7200 units Kelly Bell 7200 units HEPARIN given in lab by Kelly Bell RN in Left Antecubital via Peripheral IV. Medication (Drip) Medication Time Given Dosage/Unit Concentration/Unit Diluent (ml) Solution ADENOSINE DRIP 01/21/2017 3:34:58 PM 140 mcg/kg/min 90 mg 90 NaCl .9 140 mcg/kg/min ADENOSINE DRIP given in lab by Kelly Bell RN in Left Antecubital via Peripheral IV. Pump/Drip Flow = 1008 ml/hr using NaCl .9 with a concentration of 90 mg in 90 ml. ADENOSINE DRIP 01/21/2017 3:37:54 PM 0 units/hr 0 STOPPED 0 units/hr ADENOSINE DRIP STOPPED given in lab by Kelly Bell RN. Pump/Drip Flow = 0 ml/hr using [Solution Name]. IV Solutions 01/21/2017 2:49:01 PM 0 mL (IV) 500 NaCl .9 IV Solutions given in lab by Kelly Bell RN in Left Antecubital via Peripheral IV. Pump/Drip Oleg w = 20 ml/hr using NaCl .9. Initial Case Assessment Cardiovascular HR Rhythm NIBP Chest Pain 75 Sinus 158/92 0 Edema Present Skin color Skin None Normal Warm Dry Neurological State Oriented to time-place- Alert Moves all extremities person Respiration - General Respiration Rate SpO2 (%) O2 (lpm) (B/min) 23 98 0 Final Case Assessment Cardiovascular HR Rhythm Chest Pain 69 Sinus 0 Edema Present Skin color Skin None Normal Warm Dry Circulatory - Right Pulses Dorsalis Pedis Femoral 2 2 Scale (0,1,2,3,4,d) Circulatory - Left Pulses Dorsalis Pedis Femoral 2 2 Scale (0,1,2,3,4,d) Neurological State Oriented to time-place- Alert Moves all extremities person Respiration - General Respiration Rate SpO2 (%) O2 (lpm) (B/min) 17 98 0 Chronological Log Time Study Chronological Log 14:44:56 Patient arrived via Bed. 14:44:57 Patient Name, D.O.B, / Armband Verified By R.N. 14:44:58 Consent signed by the physician and the patient and verified by the Film Projector Operator staff. 14:44:58 Pre-op and post- op instructions given; patient acknowledges understanding of instructions. 14:44:59 Verbal Stimulation=2 Physical Stimulation=2 Airway=2 Respiration=2 TOTAL=8. (0=absent, 1=li mited, 2=present) 14:47:29 Presedation assessment performed by Film Projector Operator RN. 14:47:34 Patient has been NPO for More than 6Hrs. 14:47:35 Skin Breakdown- none per patient. 14:47:52 Patient Warmer Placed on the Table. 14:47:53 Amie Prominences Protected 14:47:59 A # 18 IV was noted in the Antecubital (left). Grade = 0 IV Solutions given in lab by Kelly Bell RN in Left Antecubital via Peripheral IV. Pump/Dr ip Flow = 20 ml/hr using 14:49:01 NaCl .9. 14:49:25 History and physical on the chart or being dictated. Assessment: Initial Case, HR=75 BPM, Rhythm=Sinus, FCLR=676/92 mmhg, Chest Pain=0, Edema=None, Color=Normal, Skin = Warm, Dry 14:49:28 Neurological: State=Alert, Ox3, JAVIER Respiration: Resp=23 B/min, SpO2=98 %, O2=0 lpm Vitals capture started with the following parameters, Patient=Adult, Interval=5 min, Initial Pr sxcwku=684 mmHg, 14:51:05 Deflation Rate=5 mmHg, Cuff placed on Right Arm 14:51:44 HR=74 bpm, EOPP=461/92 mmhg, SpO2=99.0 %, Resp=9 B/min, Pain=0, Darrell=10, Gallegos=2 14:56:45 HR=73 bpm, FIEX=816/87 mmhg, SpO2=98.0 %, Resp=16 B/min, Pain=0, Darrell=10, Gallegos=2 15:01:44 HR=68 bpm, YQBZ=578/89 mmhg, SpO2=98.0 %, Resp=15 B/min, Pain=0, Darrell=10, Gallegos=2 15:03:40 Bilateral groins prepped with 2% chlorhexidine, and draped after a 3 minute waiting time. 15:03:49 MD paged 15:06:45 HR=69 bpm, BTLK=106/99 mmhg, AnY8=659.0 %, Resp=22 B/min, Pain=0, Darrell=10, Gallegos=2 15:07:35 MD arrived. 15:07:52 Pressure channel 1 zeroed. 15:09:48 1 mg VERSED given in lab by Kelly Bell, SULAIMAN in Left Antecubital via Peripheral IV. Time Out. Correct patient, correct procedure, correct physician, power injector not loaded with contrast with surgical 15:10:46 team present. Time Out Concurred by MD and individual staff in procedure. 15:10:59 Case Start 15:11:00 20 mL 1% XYLOCAINE given in lab by Ernesto Crowe in Right Groin via Subcutaneous. 15:11:44 HR=70 bpm, WZHV=359/91 mmhg, SpO2=98.0 %, Resp=11 B/min, Pain=0, Darrell=10, Gallegos=2 15:12:17 Access site was Right Femoral Artery. 15:12:24 A SHEATH, FR4 TERUMO (10CM) FR 4 was advanced into the Fem Art (right) using the Percutaneo us technique. 15:12:47 Activated Clotting Time Drawn A JR 4.0 INFINITI CATHETER FR 4 was advanced over a wire. OMNIPAQUE, 350 MG, 150ML 150ML was us ed for 15:13:37 injections. 15:13:47 Reference ECG taken Recorded Pressure: LV, HR=67, Condition=Condition 1 15:14:21 (Left Ventricle) LV 150/4/29 15:14:33 The LV was manually injected with 6 cc's and visualized. OMNIPAQUE, 350 MG, 150ML 150ML use d. Recorded Pressure: LV, Ao, HR=70, Condition=Condition 1 15:14:44 (Left Ventricle) LV 147/8/31, (Aorta) Ao 142/80/108 15:15:16 ACT (Normal Range 90-180) = 130 15:15:38 The RCA was injected and visualized at various angles. OMNIPAQUE, 350 MG, 150ML 150ML used . 15:15:47 Catheter was removed A JL 5.0 INFINITI CATHETER FR 4 was advanced over a wire. OMNIPAQUE, 350 MG, 150ML 150ML was us ed for 15:16:16 injections. Recorded Pressure: Ao, HR=70, Condition=Condition 1 15:16:46 (Aorta) Ao 135/76/101 15:16:47 HR=69 bpm, FSVE=514/88 mmhg, SpO2=96.0 %, Resp=16 B/min, Pain=0, Darrell=10, Gallegos=2 15:16:56 The LCA was injected and visualized at various angles. OMNIPAQUE, 350 MG, 150ML 150ML used . 15:18:13 Catheter was removed A SHEATH, FR6.5 PRELUDE 11CM FR 6.5 was exchanged in the Fem Art (right). This was necessary in order to 15:20:36 accomodate a larger catheter. 15:20:55 7200 units HEPARIN given in lab by Kelly Bell RN in Left Antecubital via Peripheral I V. 15:21:46 HR=74 bpm, NGJX=242/88 mmhg, SpO2=98.0 %, Resp=10 B/min, Pain=0, Darrell=10, Gallegos=2 A XB 4.0 GUIDE CATHETER FR 6 was advanced over a wire. OMNIPAQUE, 350 MG, 150ML 150ML was used for 15:25:27 injections. 15:26:27 Activated Clotting Time Drawn 15:26:49 HR=74 bpm, RJDI=045/85 mmhg, SpO2=96.0 %, Resp=19 B/min, Pain=0, Darrell=10, Gallegos=2 15:27:43 A PRIME WIRE, VERRATA 185CM 185CM was inserted via Fem Art (right). 15:29:54 Interventional wire has crossed the lesion 15:30:07 Flow Wire was was placed in the LAD Mid. The FFR measures 0.88 percent. The IFR measures 0. 94 Percent. 15:30:58 ACT (Normal Range 90-180) = 250 15:31:47 HR=73 bpm, LATX=095/82 mmhg, SpO2=97.0 %, Resp=12 B/min, Pain=0, Darrell=10, Gallegos=2 140 mcg/kg/min ADENOSINE DRIP given in lab by Kelly Bell, RN in Left Antecubital via Perip heral IV. Pump/Drip 15:34:58 Flow = 1008 ml/hr using NaCl .9 with a concentration of 90 mg in 90 ml. 15:36:46 II=076 bpm, ZSGJ=164/86 mmhg, QrJ4=624.0 %, Resp=22 B/min, Pain=0, Darrell=10, Gallegos=2 0 units/hr ADENOSINE DRIP STOPPED given in lab by Kelly Bell, RN. Pump/Drip Flow = 0 ml/hr using [Solution 15:37:54 Name]. 15:38:29 Wire removed 15:38:31 Catheter was removed 15:38:39 Case End 15:40:38 In the Fem Art (right) the SHEATH, FR6.5 PRELUDE 11CM FR 6.[address] by Leonela Vazquez RT(R) (BS). Assessment: Final Case, HR=69 BPM, Rhythm=Sinus, Chest Pain=0, Edema=None, Color=Normal, Skin = Warm, Dry Right Pulses: John Ped=2, Femoral=2 15:40:50 Left Pulses: John Ped=2, Femoral=2 Neurological: State=Alert, Ox3, JAVIER Respiration: Resp=17 B/min, SpO2=98 %, O2=0 lpm 15:41:47 HR=70 bpm, KSRC=153/83 mmhg, SpO2=98.0 %, Resp=10 B/min, Pain=0, Darrell=10, Gallegos=2 15:46:48 HR=63 bpm, IXPP=565/81 mmhg, SpO2=98.0 %, Resp=13 B/min, Pain=0, Darrell=10, Gallegos=2 15:47:43 Sterile dressing applied to site 15:47:46 Bedside Report will be given. 15:47:56 A Left Heart Cath was performed. 15:48:07 Vitals capture stopped. End Study - Contrast Media Used In Study Contrast Total Opened (mL) Total Used (mL) Total Wasted (mL) Omnipaque 150 80 70 End Study - Maximum Contrast Load Max Contrast Load (mL) 500.0 End Study - Radiation Exposure Fluoro Time (minutes) 3.4 End Study - Patient Disposition Complications Transferred To Interventional Outcome No Telemetry Bed No attempt made
--- NOTE | 2017-01-21 15:50 | CATHPROC ---
[employer] HIS Report Study Information Study Number Admission Scheduled Start Study Start [id number] Jan 20 2017 8:34AM 01/21/2017 Jan 21 2017 2:31PM [place] [facility] Cardiac Catheterization Admit Source Facility Department Emergency department [facility] - Eeg Technologist Physician and Clinical Staff Initial Ernesto Mathis Engine Repairer Service Kelly Bell,SULAIMAN Recorder Aubrey Warner,RT(R) Recorder Brennan Alcaraz,RT(R) Leonela Granda,RT(R) (BS) Procedures Performed Procedure Location (Site) Vessel Name Coronary Angiograms LCA Left Coronary Coronary Angiograms RCA Right Coronary L Heart Cath LV Gram-hand inj. LV LV Ventricle Wire insertion Fem Art (right) Femoral Art Equipment Time Patternmaker Plaster Description Size Mfg Part Number Used/Scraped TRANSDUCER, TRUWAVE [id number] 14:47 MOORE DAVID * Used W/STOCKCOCK *[id number] [id number] *[id number] [id number] *[id number] [id number] *[id number] *[id number] 14:47 MEDLINE INDUSTRIES PACK, CCL CUSTOM * Used *[id number] 14:47 MEDLINE PACER PEN, SKIN DUAL W/ RULER * Used *[id number] 15:19 [employer] MEDICAL SHEATH, FR6.5 PRELUDE 11CM FR 6.5 038ACT Used *[id number] 14:47 [employer] MEDICAL WIRE, 3MMJ .035 180CM 180CM Used *[id number] 14:47 NAMIC MANIFOLD, 4 PORT * Used *[id number] 14:47 NYCOMED OMNIPAQUE, 350 MG, 150ML 150ML [id number] Used [id number] 14:47 [employer] MEDICAL BLANKET,WARM AIR CCL * Used *[id number] 14:47 TERUMO MEDICAL SHEATH, FR4 TERUMO (10CM) FR 4 Used *[id number] 15:19 [place] PRIME WIRE, VERRATA 185CM 185CM [id number] *[id number] Used Equipment Model, Serial, Lot Number and Expiration Data Description Model Number Serial Number Lot Number Expiration Date PRIME WIRE, VERRATA 185CM [id number] 12-16-2019 SHEATH, FR6.5 PRELUDE 11CM [id number] 09-15-2019 History: Current Medications Medication Dosage/Unit Route Frequency Last Date/Time Taken ASA CARVEDILOL LIPITOR History: Allergies Allergy Reaction No Known Allergies History: Risk Factors Family History of Hypertension Dyslipidemia Previous [place] Previous Heart Failure Premature CAD Yes No Yes No No Prior Valve Prior PCI Prior CABG Surgery No No No Cerebrovascular Peripheral Artery Chronic Lung On Dialysis Diabetes Disease Disease Disease No No No No No History: Symptoms/Diagnosis Selection Items Syncope History: Stress Tests Stress or Imaging Studies Performed No History: Other Disease Selection Items HTN History: Other Current Smoker No Labs Hgb (g/dl) Hct (%) RBC (MIL/MM3) WBC (l/cumm) Platelets (thousands) 11.60-17.00 35.00-51.00 4.00-5.90 4.00-11.00 150.00-450.00 11.6 34.7 3.7 8.2 206 Glucose (mg/dl) BUN (mg/dl) Creatinine (mg/dl) BUN:Creatinine (1:x) 74.00-106.00 7.00-18.00 0.50-1.30 10.00-20.00 91 20 1.2 16.7 Na (meq/l) K (meq/l) Cl (meq/l) CO2 (mmol/L) Ca (mg/dl) 136.00-145.00 3.50-5.10 98.00-107.00 21.00-32.00 8.50-10.10 140 4.7 108 24.8 8.3 PT (sec) PTT (sec) INR (PTT:PT) 9.80-11.60 24.30-30.10 0.90-1.10 11.4 38.3 1 Troponin I (ng/ml) Troponin T (ng/ml) CPK (u/l) CPK-MB (ng/ML) 0.02-0.05 0.40-2.10 26.00-308.00 0.50-3.60 0.98 0.7 75 Not Drawn Medication Medication Total Dose (Bolus/Oral) Medication Total Dosage/Unit 1% XYLOCAINE 20 mL HEPARIN 7200 units VERSED 1 mg Medications (Bolus/Oral) Medication Time Given Dosage/Unit Administered By Reason VERSED 01/21/2017 3:09:48 PM 1 mg Kelly Bell 1 mg VERSED given in lab by Kelly Bell RN in Left Antecubital via Peripheral IV. 1% XYLOCAINE 01/21/2017 3:11:00 PM 20 mL Ernesto Crowe 20 mL 1% XYLOCAINE given in lab by Ernesto Crowe in Right Groin via Subcutaneous. HEPARIN 01/21/2017 3:20:55 PM 7200 units Kelly Bell 7200 units HEPARIN given in lab by Kelly Bell RN in Left Antecubital via Peripheral IV. Medication (Drip) Medication Time Given Dosage/Unit Concentration/Unit Diluent (ml) Solution ADENOSINE DRIP 01/21/2017 3:34:58 PM 140 mcg/kg/min 90 mg 90 NaCl .9 140 mcg/kg/min ADENOSINE DRIP given in lab by Kelly Bell RN in Left Antecubital via Peripheral IV. Pump/Drip Flow = 1008 ml/hr using NaCl .9 with a concentration of 90 mg in 90 ml. ADENOSINE DRIP 01/21/2017 3:37:54 PM 0 units/hr 0 STOPPED 0 units/hr ADENOSINE DRIP STOPPED given in lab by Kelly Bell RN. Pump/Drip Flow = 0 ml/hr using [Solution Name]. IV Solutions 01/21/2017 2:49:01 PM 0 mL (IV) 500 NaCl .9 IV Solutions given in lab by Kelly Bell RN in Left Antecubital via Peripheral IV. Pump/Drip Oleg w = 20 ml/hr using NaCl .9. Initial Case Assessment Cardiovascular HR Rhythm NIBP Chest Pain 75 Sinus 158/92 0 Edema Present Skin color Skin None Normal Warm Dry Neurological State Oriented to time-place- Alert Moves all extremities person Respiration - General Respiration Rate SpO2 (%) O2 (lpm) (B/min) 23 98 0 Final Case Assessment Cardiovascular HR Rhythm Chest Pain 69 Sinus 0 Edema Present Skin color Skin None Normal Warm Dry Circulatory - Right Pulses Dorsalis Pedis Femoral 2 2 Scale (0,1,2,3,4,d) Circulatory - Left Pulses Dorsalis Pedis Femoral 2 2 Scale (0,1,2,3,4,d) Neurological State Oriented to time-place- Alert Moves all extremities person Respiration - General Respiration Rate SpO2 (%) O2 (lpm) (B/min) 17 98 0 Chronological Log Time Study Chronological Log 14:44:56 Patient arrived via Bed. 14:44:57 Patient Name, D.O.B, / Armband Verified By R.N. 14:44:58 Consent signed by the physician and the patient and verified by the Eeg Technologist staff. 14:44:58 Pre-op and post- op instructions given; patient acknowledges understanding of instructions. 14:44:59 Verbal Stimulation=2 Physical Stimulation=2 Airway=2 Respiration=2 TOTAL=8. (0=absent, 1=li mited, 2=present) 14:47:29 Presedation assessment performed by Eeg Technologist RN. 14:47:34 Patient has been NPO for More than 6Hrs. 14:47:35 Skin Breakdown- none per patient. 14:47:52 Patient Warmer Placed on the Table. 14:47:53 Amie Prominences Protected 14:47:59 A # 18 IV was noted in the Antecubital (left). Grade = 0 IV Solutions given in lab by Kelly Bell RN in Left Antecubital via Peripheral IV. Pump/Dr ip Flow = 20 ml/hr using 14:49:01 NaCl .9. 14:49:25 History and physical on the chart or being dictated. Assessment: Initial Case, HR=75 BPM, Rhythm=Sinus, VADR=870/92 mmhg, Chest Pain=0, Edema=None, Color=Normal, Skin = Warm, Dry 14:49:28 Neurological: State=Alert, Ox3, JAVIER Respiration: Resp=23 B/min, SpO2=98 %, O2=0 lpm Vitals capture started with the following parameters, Patient=Adult, Interval=5 min, Initial Pr ohlsgj=087 mmHg, 14:51:05 Deflation Rate=5 mmHg, Cuff placed on Right Arm 14:51:44 HR=74 bpm, QODS=237/92 mmhg, SpO2=99.0 %, Resp=9 B/min, Pain=0, Darrell=10, Gallegos=2 14:56:45 HR=73 bpm, ZFON=973/87 mmhg, SpO2=98.0 %, Resp=16 B/min, Pain=0, Darrell=10, Gallegos=2 15:01:44 HR=68 bpm, XCEK=340/89 mmhg, SpO2=98.0 %, Resp=15 B/min, Pain=0, Darrell=10, Gallegos=2 15:03:40 Bilateral groins prepped with 2% chlorhexidine, and draped after a 3 minute waiting time. 15:03:49 MD paged 15:06:45 HR=69 bpm, LXIN=883/99 mmhg, QiK1=729.0 %, Resp=22 B/min, Pain=0, Darrell=10, Gallegos=2 15:07:35 MD arrived. 15:07:52 Pressure channel 1 zeroed. 15:09:48 1 mg VERSED given in lab by Kelly Bell, SULAIMAN in Left Antecubital via Peripheral IV. Time Out. Correct patient, correct procedure, correct physician, power injector not loaded with contrast with surgical 15:10:46 team present. Time Out Concurred by MD and individual staff in procedure. 15:10:59 Case Start 15:11:00 20 mL 1% XYLOCAINE given in lab by Ernesto Crowe in Right Groin via Subcutaneous. 15:11:44 HR=70 bpm, GYVN=079/91 mmhg, SpO2=98.0 %, Resp=11 B/min, Pain=0, Darrell=10, Gallegos=2 15:12:17 Access site was Right Femoral Artery. 15:12:24 A SHEATH, FR4 TERUMO (10CM) FR 4 was advanced into the Fem Art (right) using the Percutaneo us technique. 15:12:47 Activated Clotting Time Drawn A JR 4.0 INFINITI CATHETER FR 4 was advanced over a wire. OMNIPAQUE, 350 MG, 150ML 150ML was us ed for 15:13:37 injections. 15:13:47 Reference ECG taken Recorded Pressure: LV, HR=67, Condition=Condition 1 15:14:21 (Left Ventricle) LV 150/4/29 15:14:33 The LV was manually injected with 6 cc's and visualized. OMNIPAQUE, 350 MG, 150ML 150ML use d. Recorded Pressure: LV, Ao, HR=70, Condition=Condition 1 15:14:44 (Left Ventricle) LV 147/8/31, (Aorta) Ao 142/80/108 15:15:16 ACT (Normal Range 90-180) = 130 15:15:38 The RCA was injected and visualized at various angles. OMNIPAQUE, 350 MG, 150ML 150ML used . 15:15:47 Catheter was removed A JL 5.0 INFINITI CATHETER FR 4 was advanced over a wire. OMNIPAQUE, 350 MG, 150ML 150ML was us ed for 15:16:16 injections. Recorded Pressure: Ao, HR=70, Condition=Condition 1 15:16:46 (Aorta) Ao 135/76/101 15:16:47 HR=69 bpm, GZIS=720/88 mmhg, SpO2=96.0 %, Resp=16 B/min, Pain=0, Darrell=10, Gallegos=2 15:16:56 The LCA was injected and visualized at various angles. OMNIPAQUE, 350 MG, 150ML 150ML used . 15:18:13 Catheter was removed A SHEATH, FR6.5 PRELUDE 11CM FR 6.5 was exchanged in the Fem Art (right). This was necessary in order to 15:20:36 accomodate a larger catheter. 15:20:55 7200 units HEPARIN given in lab by Kelly Bell RN in Left Antecubital via Peripheral I V. 15:21:46 HR=74 bpm, JQXP=292/88 mmhg, SpO2=98.0 %, Resp=10 B/min, Pain=0, Darrell=10, Gallegos=2 A XB 4.0 GUIDE CATHETER FR 6 was advanced over a wire. OMNIPAQUE, 350 MG, 150ML 150ML was used for 15:25:27 injections. 15:26:27 Activated Clotting Time Drawn 15:26:49 HR=74 bpm, MNDQ=249/85 mmhg, SpO2=96.0 %, Resp=19 B/min, Pain=0, Darrell=10, Gallegos=2 15:27:43 A PRIME WIRE, VERRATA 185CM 185CM was inserted via Fem Art (right). 15:29:54 Interventional wire has crossed the lesion 15:30:07 Flow Wire was was placed in the LAD Mid. The FFR measures 0.88 percent. The IFR measures 0. 94 Percent. 15:30:58 ACT (Normal Range 90-180) = 250 15:31:47 HR=73 bpm, QFSD=940/82 mmhg, SpO2=97.0 %, Resp=12 B/min, Pain=0, Darrell=10, Gallegos=2 140 mcg/kg/min ADENOSINE DRIP given in lab by Kelly Bell, RN in Left Antecubital via Perip heral IV. Pump/Drip 15:34:58 Flow = 1008 ml/hr using NaCl .9 with a concentration of 90 mg in 90 ml. 15:36:46 DE=072 bpm, SHWH=289/86 mmhg, UcK0=948.0 %, Resp=22 B/min, Pain=0, Darrell=10, Gallegos=2 0 units/hr ADENOSINE DRIP STOPPED given in lab by Kelly Bell, RN. Pump/Drip Flow = 0 ml/hr using [Solution 15:37:54 Name]. 15:38:29 Wire removed 15:38:31 Catheter was removed 15:38:39 Case End 15:40:38 In the Fem Art (right) the SHEATH, FR6.5 PRELUDE 11CM FR 6.[address] by Leonela Vazquez RT(R) (BS). Assessment: Final Case, HR=69 BPM, Rhythm=Sinus, Chest Pain=0, Edema=None, Color=Normal, Skin = Warm, Dry Right Pulses: John Ped=2, Femoral=2 15:40:50 Left Pulses: John Ped=2, Femoral=2 Neurological: State=Alert, Ox3, JAVIER Respiration: Resp=17 B/min, SpO2=98 %, O2=0 lpm 15:41:47 HR=70 bpm, JSIL=737/83 mmhg, SpO2=98.0 %, Resp=10 B/min, Pain=0, Darrell=10, Gallegos=2 15:46:48 HR=63 bpm, EKVU=660/81 mmhg, SpO2=98.0 %, Resp=13 B/min, Pain=0, Darrell=10, Gallegos=2 15:47:43 Sterile dressing applied to site 15:47:46 Bedside Report will be given. 15:47:56 A Left Heart Cath was performed. 15:48:07 Vitals capture stopped. End Study - Contrast Media Used In Study Contrast Total Opened (mL) Total Used (mL) Total Wasted (mL) Omnipaque 150 80 70 End Study - Maximum Contrast Load Max Contrast Load (mL) 500.0 End Study - Radiation Exposure Fluoro Time (minutes) 3.4 End Study - Patient Disposition Complications Transferred To Interventional Outcome No Telemetry Bed No attempt made
--- NOTE | 2017-01-21 15:50 | CATHPROC ---
QRuso HIS Report Study Information Study Number Admission Scheduled Start Study Start [id number] Jan 20 2017 8:34AM 01/21/2017 Jan 21 2017 2:31PM [place] [facility]iac Catheterization Admit Source Facility Department Emergency department [facility] - Taxonomy Teacher Physician and Clinical Staff Initial Ernesto Mathis Band Edger Kelly Bell,SULAIMAN Recorder Aubrey Warner,RT(R) Recorder Brennan Alcaraz,RT(R) Leonela Granda,RT(R) (BS) Procedures Performed Procedure Location (Site) Vessel Name Coronary Angiograms LCA Left Coronary Coronary Angiograms RCA Right Coronary L Heart Cath LV Gram-hand inj. LV LV Ventricle Wire insertion Fem Art (right) Femoral Art Equipment Time Supervisor Jewelry Department Description Size Mfg Part Number Used/Scraped TRANSDUCER, TRUWAVE [id number] 14:47 MOORE DAVID * Used W/STOCKCOCK *[id number] *[id number] *[id number] *[id number] *[id number] 14:47 MEDLINE INDUSTRIES PACK, CCL CUSTOM * Used *[id number] 14:47 MEDLINE PACER PEN, SKIN DUAL W/ RULER * Used *[id number] 15:19 [employer] MEDICAL SHEATH, FR6.5 PRELUDE 11CM FR 6.5 038ACT Used *[id number] 14:47 [employer] MEDICAL WIRE, 3MMJ .035 180CM 180CM Used *[id number] 14:47 NAMIC MANIFOLD, 4 PORT * Used *[id number] 14:47 NYCOMED OMNIPAQUE, 350 MG, 150ML 150ML [id number] Used [id number] 14:47 [place] MEDICAL BLANKET,WARM AIR CCL * Used *[id number] 14:47 TERUMO MEDICAL SHEATH, FR4 TERUMO (10CM) FR 4 Used *[id number] 15:19 [place] PRIME WIRE, VERRATA 185CM 185CM [id number] *[id number] Used Equipment Model, Serial, Lot Number and Expiration Data Description Model Number Serial Number Lot Number Expiration Date PRIME WIRE, VERRATA 185CM [id number] 12-16-2019 SHEATH, FR6.5 PRELUDE 11CM [id number] 09-15-2019 History: Current Medications Medication Dosage/Unit Route Frequency Last Date/Time Taken ASA CARVEDILOL LIPITOR History: Allergies Allergy Reaction No Known Allergies History: Risk Factors Family History of Hypertension Dyslipidemia Previous [place] Previous Heart Failure Premature CAD Yes No Yes No No Prior Valve Prior PCI Prior CABG Surgery No No No Cerebrovascular Peripheral Artery Chronic Lung On Dialysis Diabetes Disease Disease Disease No No No No No History: Symptoms/Diagnosis Selection Items Syncope History: Stress Tests Stress or Imaging Studies Performed No History: Other Disease Selection Items HTN History: Other Current Smoker No Labs Hgb (g/dl) Hct (%) RBC (MIL/MM3) WBC (l/cumm) Platelets (thousands) 11.60-17.00 35.00-51.00 4.00-5.90 4.00-11.00 150.00-450.00 11.6 34.7 3.7 8.2 206 Glucose (mg/dl) BUN (mg/dl) Creatinine (mg/dl) BUN:Creatinine (1:x) 74.00-106.00 7.00-18.00 0.50-1.30 10.00-20.00 91 20 1.2 16.7 Na (meq/l) K (meq/l) Cl (meq/l) CO2 (mmol/L) Ca (mg/dl) 136.00-145.00 3.50-5.10 98.00-107.00 21.00-32.00 8.50-10.10 140 4.7 108 24.8 8.3 PT (sec) PTT (sec) INR (PTT:PT) 9.80-11.60 24.30-30.10 0.90-1.10 11.4 38.3 1 Troponin I (ng/ml) Troponin T (ng/ml) CPK (u/l) CPK-MB (ng/ML) 0.02-0.05 0.40-2.10 26.00-308.00 0.50-3.60 0.98 0.7 75 Not Drawn Medication Medication Total Dose (Bolus/Oral) Medication Total Dosage/Unit 1% XYLOCAINE 20 mL HEPARIN 7200 units VERSED 1 mg Medications (Bolus/Oral) Medication Time Given Dosage/Unit Administered By Reason VERSED 01/21/2017 3:09:48 PM 1 mg Kelly Bell 1 mg VERSED given in lab by Kelly Bell RN in Left Antecubital via Peripheral IV. 1% XYLOCAINE 01/21/2017 3:11:00 PM 20 mL Ernesto Crowe 20 mL 1% XYLOCAINE given in lab by Ernesto Crowe in Right Groin via Subcutaneous. HEPARIN 01/21/2017 3:20:55 PM 7200 units Kelly Bell 7200 units HEPARIN given in lab by Kelly Bell RN in Left Antecubital via Peripheral IV. Medication (Drip) Medication Time Given Dosage/Unit Concentration/Unit Diluent (ml) Solution ADENOSINE DRIP 01/21/2017 3:34:58 PM 140 mcg/kg/min 90 mg 90 NaCl .9 140 mcg/kg/min ADENOSINE DRIP given in lab by Kelly Bell RN in Left Antecubital via Peripheral IV. Pump/Drip Flow = 1008 ml/hr using NaCl .9 with a concentration of 90 mg in 90 ml. ADENOSINE DRIP 01/21/2017 3:37:54 PM 0 units/hr 0 STOPPED 0 units/hr ADENOSINE DRIP STOPPED given in lab by Kelly Bell RN. Pump/Drip Flow = 0 ml/hr using [Solution Name]. IV Solutions 01/21/2017 2:49:01 PM 0 mL (IV) 500 NaCl .9 IV Solutions given in lab by Kelly Bell RN in Left Antecubital via Peripheral IV. Pump/Drip Oleg w = 20 ml/hr using NaCl .9. Initial Case Assessment Cardiovascular HR Rhythm NIBP Chest Pain 75 Sinus 158/92 0 Edema Present Skin color Skin None Normal Warm Dry Neurological State Oriented to time-place- Alert Moves all extremities person Respiration - General Respiration Rate SpO2 (%) O2 (lpm) (B/min) 23 98 0 Final Case Assessment Cardiovascular HR Rhythm Chest Pain 69 Sinus 0 Edema Present Skin color Skin None Normal Warm Dry Circulatory - Right Pulses Dorsalis Pedis Femoral 2 2 Scale (0,1,2,3,4,d) Circulatory - Left Pulses Dorsalis Pedis Femoral 2 2 Scale (0,1,2,3,4,d) Neurological State Oriented to time-place- Alert Moves all extremities person Respiration - General Respiration Rate SpO2 (%) O2 (lpm) (B/min) 17 98 0 Chronological Log Time Study Chronological Log 14:44:56 Patient arrived via Bed. 14:44:57 Patient Name, D.O.B, / Armband Verified By R.N. 14:44:58 Consent signed by the physician and the patient and verified by the Taxonomy Teacher staff. 14:44:58 Pre-op and post- op instructions given; patient acknowledges understanding of instructions. 14:44:59 Verbal Stimulation=2 Physical Stimulation=2 Airway=2 Respiration=2 TOTAL=8. (0=absent, 1=li mited, 2=present) 14:47:29 Presedation assessment performed by Taxonomy Teacher RN. 14:47:34 Patient has been NPO for More than 6Hrs. 14:47:35 Skin Breakdown- none per patient. 14:47:52 Patient Warmer Placed on the Table. 14:47:53 Amie Prominences Protected 14:47:59 A # 18 IV was noted in the Antecubital (left). Grade = 0 IV Solutions given in lab by Kelly Bell RN in Left Antecubital via Peripheral IV. Pump/Dr ip Flow = 20 ml/hr using 14:49:01 NaCl .9. 14:49:25 History and physical on the chart or being dictated. Assessment: Initial Case, HR=75 BPM, Rhythm=Sinus, WULU=190/92 mmhg, Chest Pain=0, Edema=None, Color=Normal, Skin = Warm, Dry 14:49:28 Neurological: State=Alert, Ox3, JAVIER Respiration: Resp=23 B/min, SpO2=98 %, O2=0 lpm Vitals capture started with the following parameters, Patient=Adult, Interval=5 min, Initial Pr vyuzcx=785 mmHg, 14:51:05 Deflation Rate=5 mmHg, Cuff placed on Right Arm 14:51:44 HR=74 bpm, WRSL=045/92 mmhg, SpO2=99.0 %, Resp=9 B/min, Pain=0, Darrell=10, Gallegos=2 14:56:45 HR=73 bpm, PWZD=547/87 mmhg, SpO2=98.0 %, Resp=16 B/min, Pain=0, Darrell=10, Gallegos=2 15:01:44 HR=68 bpm, LNFT=865/89 mmhg, SpO2=98.0 %, Resp=15 B/min, Pain=0, Darrell=10, Gallegos=2 15:03:40 Bilateral groins prepped with 2% chlorhexidine, and draped after a 3 minute waiting time. 15:03:49 MD paged 15:06:45 HR=69 bpm, DFND=476/99 mmhg, SxI3=437.0 %, Resp=22 B/min, Pain=0, Darrell=10, Gallegos=2 15:07:35 MD arrived. 15:07:52 Pressure channel 1 zeroed. 15:09:48 1 mg VERSED given in lab by Kelly Bell, SULAIMAN in Left Antecubital via Peripheral IV. Time Out. Correct patient, correct procedure, correct physician, power injector not loaded with contrast with surgical 15:10:46 team present. Time Out Concurred by MD and individual staff in procedure. 15:10:59 Case Start 15:11:00 20 mL 1% XYLOCAINE given in lab by Ernesto Crowe in Right Groin via Subcutaneous. 15:11:44 HR=70 bpm, GUHX=436/91 mmhg, SpO2=98.0 %, Resp=11 B/min, Pain=0, Darrell=10, Gallegos=2 15:12:17 Access site was Right Femoral Artery. 15:12:24 A SHEATH, FR4 TERUMO (10CM) FR 4 was advanced into the Fem Art (right) using the Percutaneo us technique. 15:12:47 Activated Clotting Time Drawn A JR 4.0 INFINITI CATHETER FR 4 was advanced over a wire. OMNIPAQUE, 350 MG, 150ML 150ML was us ed for 15:13:37 injections. 15:13:47 Reference ECG taken Recorded Pressure: LV, HR=67, Condition=Condition 1 15:14:21 (Left Ventricle) LV 150/4/29 15:14:33 The LV was manually injected with 6 cc's and visualized. OMNIPAQUE, 350 MG, 150ML 150ML use d. Recorded Pressure: LV, Ao, HR=70, Condition=Condition 1 15:14:44 (Left Ventricle) LV 147/8/31, (Aorta) Ao 142/80/108 15:15:16 ACT (Normal Range 90-180) = 130 15:15:38 The RCA was injected and visualized at various angles. OMNIPAQUE, 350 MG, 150ML 150ML used . 15:15:47 Catheter was removed A JL 5.0 INFINITI CATHETER FR 4 was advanced over a wire. OMNIPAQUE, 350 MG, 150ML 150ML was us ed for 15:16:16 injections. Recorded Pressure: Ao, HR=70, Condition=Condition 1 15:16:46 (Aorta) Ao 135/76/101 15:16:47 HR=69 bpm, LETB=722/88 mmhg, SpO2=96.0 %, Resp=16 B/min, Pain=0, Darrell=10, Gallegos=2 15:16:56 The LCA was injected and visualized at various angles. OMNIPAQUE, 350 MG, 150ML 150ML used . 15:18:13 Catheter was removed A SHEATH, FR6.5 PRELUDE 11CM FR 6.5 was exchanged in the Fem Art (right). This was necessary in order to 15:20:36 accomodate a larger catheter. 15:20:55 7200 units HEPARIN given in lab by Kelly Bell RN in Left Antecubital via Peripheral I V. 15:21:46 HR=74 bpm, PKLU=527/88 mmhg, SpO2=98.0 %, Resp=10 B/min, Pain=0, Darrell=10, Gallegos=2 A XB 4.0 GUIDE CATHETER FR 6 was advanced over a wire. OMNIPAQUE, 350 MG, 150ML 150ML was used for 15:25:27 injections. 15:26:27 Activated Clotting Time Drawn 15:26:49 HR=74 bpm, FINH=176/85 mmhg, SpO2=96.0 %, Resp=19 B/min, Pain=0, Darrell=10, Gallegos=2 15:27:43 A PRIME WIRE, VERRATA 185CM 185CM was inserted via Fem Art (right). 15:29:54 Interventional wire has crossed the lesion 15:30:07 Flow Wire was was placed in the LAD Mid. The FFR measures 0.88 percent. The IFR measures 0. 94 Percent. 15:30:58 ACT (Normal Range 90-180) = 250 15:31:47 HR=73 bpm, CZXZ=342/82 mmhg, SpO2=97.0 %, Resp=12 B/min, Pain=0, Darrell=10, Gallegos=2 140 mcg/kg/min ADENOSINE DRIP given in lab by Kelly Bell, RN in Left Antecubital via Perip heral IV. Pump/Drip 15:34:58 Flow = 1008 ml/hr using NaCl .9 with a concentration of 90 mg in 90 ml. 15:36:46 AV=184 bpm, LLZK=832/86 mmhg, QhY0=933.0 %, Resp=22 B/min, Pain=0, Darrell=10, Gallegos=2 0 units/hr ADENOSINE DRIP STOPPED given in lab by Kelly Bell, RN. Pump/Drip Flow = 0 ml/hr using [Solution 15:37:54 Name]. 15:38:29 Wire removed 15:38:31 Catheter was removed 15:38:39 Case End 15:40:38 In the Fem Art (right) the SHEATH, FR6.5 PRELUDE 11CM FR 6.[address] by Leonela Vazquez RT(R) (BS). Assessment: Final Case, HR=69 BPM, Rhythm=Sinus, Chest Pain=0, Edema=None, Color=Normal, Skin = Warm, Dry Right Pulses: John Ped=2, Femoral=2 15:40:50 Left Pulses: John Ped=2, Femoral=2 Neurological: State=Alert, Ox3, JAVIER Respiration: Resp=17 B/min, SpO2=98 %, O2=0 lpm 15:41:47 HR=70 bpm, HNLM=456/83 mmhg, SpO2=98.0 %, Resp=10 B/min, Pain=0, Darrell=10, Gallegos=2 15:46:48 HR=63 bpm, WROL=991/81 mmhg, SpO2=98.0 %, Resp=13 B/min, Pain=0, Darrell=10, Gallegos=2 15:47:43 Sterile dressing applied to site 15:47:46 Bedside Report will be given. 15:47:56 A Left Heart Cath was performed. 15:48:07 Vitals capture stopped. End Study - Contrast Media Used In Study Contrast Total Opened (mL) Total Used (mL) Total Wasted (mL) Omnipaque 150 80 70 End Study - Maximum Contrast Load Max Contrast Load (mL) 500.0 End Study - Radiation Exposure Fluoro Time (minutes) 3.4 End Study - Patient Disposition Complications Transferred To Interventional Outcome No Telemetry Bed No attempt made
--- NOTE | 2017-01-21 16:01 | ECHRPT ---
Indication: NSTEMI CONCLUSIONS Normal left ventricular size. Wall thickness is normal. The left ventricular systolic function is hyperdynamic with an estimated ejection fraction in the ra nge of 50%. No significant valvulopathies No pericardial effusion BP: 150 / 76 HR: Rhythm: Sinus MEASUREMENTS (Male / Female) Normal Values Technical Quality:Fair 2D ECHO LV Diastolic Diameter PLAX 5.4 cm 4.2 - 5.9 / 3.9 - 5.3 cm LV Systolic Diameter PLAX 3.7 cm IVS Diastolic Thickness 1.0 cm 0.6 - 1.0 / 0.6 - 0.9 cm LVPW Diastolic Thickness 1.0 cm 0.6 - 1.0 / 0.6 - 0.9 cm LV Relative Wall Thickness 0.4 LVOT Diameter 2.2 cm Aortic Root Diameter 3.0 cm LA Systolic Diameter LX 3.6 cm 3.0 - 4.0 / 2.7 - 3.8 cm M-MODE AV Cusp Separation MM 2.5 cm DOPPLER AV Peak Velocity 145.0 cm/s AV Peak Gradient 8.4 mmHg AV Mean Gradient 5.0 mmHg AV Velocity Time Integral 33.4 cm LVOT Peak Velocity 95.5 cm/s LVOT Peak Gradient 3.6 mmHg LVOT Velocity Time Integral 20.8 cm AV Area Cont Eq vti 2.4 cm AV Area Cont Eq pk 2.5 cm Mitral E Point Velocity 86.4 cm/s Mitral A Point Velocity 85.9 cm/s Mitral E to A Ratio 1.0 LV E' Lateral Velocity 11.3 cm/s Mitral E to LV E' Lateral Ratio 7.6 LV E' Septal Velocity 11.3 cm/s Mitral E to LV E' Septal Ratio 7.6 TR Peak Velocity 277.0 cm/s TR Peak Gradient 30.7 mmHg Right Atrial Pressure 10.0 mmHg Pulmonary Artery Systolic Pressu 40.7 mmHg Right Ventricular Systolic Press 40.7 mmHg PV Peak Velocity 62.4 cm/s PV Peak Gradient 1.6 mmHg FINDINGS LEFT VENTRICLE Normal left ventricular size. Wall thickness is normal. The left ventricular systolic function is hyperdynamic with an estimated ejection fraction in the ra nge of 65- 70%. There is diffuse global hypokinesis with distinct regional wall motion abnormalities. RIGHT VENTRICLE Normal right ventricular size and systolic function. LEFT ATRIUM The left atrial size is normal. RIGHT ATRIUM The right atrial size is normal. ATRIAL SEPTUM Normal atrial septal thickness without atrial level shunting by limited color doppler interrogation. AORTA The aortic root and proximal ascending aorta are normal in size on limited imaging. MITRAL VALVE Structurally normal mitral valve. No mitral valve stenosis or regurgitation. AORTIC VALVE Trileaflet aortic valve. No aortic valve stenosis or regurgitation. TRICUSPID VALVE Structurally normal tricuspid valve. No tricuspid valve stenosis or regurgitation. PULMONARY VALVE No pulmonary valve regurgitation or stenosis. VESSELS The inferior vena cava is normal in size. PERICARDIUM No pericardial effusion. Kal García MD (Electronically Signed) Final Date:21 January 2017 16:00
[2017-01-21] MEDS ORDERED: IOHEXOL 350 MG/ML 100 ML BTL (for Cath Lab) OTHER ONE (16:16)
[2017-01-21] MEDS: SODIUM CHLOR 0.9% 1000 ML INJ 1,000 ML IV SCH (16:40)
[2017-01-21] MEDS: MORPHINE SULFATE 2 MG/ML INJ IM PRN ×2 (16:48→21:26)
[2017-01-21] MEDS ORDERED: SODIUM CHLORIDE 0.9% FLUSH 10 ML FLUSH IV FLUSH PRN (17:00)
[2017-01-21] MEDS ORDERED: MISC INFORMATION XX ONE (17:00)
[2017-01-21] MEDS: ATORVASTATIN 80 MG TAB PO SCH (21:28)
[2017-01-22] VITALS (8 sets, daily range): BP systolic 117–119; BP diastolic 74–76; PULSE 50–90; RESP 16–20; TEMP 98–98.2; O2SAT 96
[2017-01-22] MEDS: SODIUM CHLOR 0.9% 1000 ML INJ 1,000 ML IV SCH ×2 (04:35→10:37)
[2017-01-22] MEDS: traMADol HCL 50 MG TAB PO PRN (05:13)
[2017-01-22 06:13] LABS: AUTOMATED NEUTROPHIL # 6.5 TH/MM3 (1.8-7.7); BASOPHIL % 0.2 % (0.0-2.0); EOSINOPHIL # 0.2 TH/MM3 (0-0.4); EOSINOPHIL % 2.1 % (0.0-4.0); HEMATOCRIT 34.5 % (39.0-51.0); HEMOGLOBIN 11.8 GM/DL (13.0-17.0); LYMPH % 12.4 % (9.0-44.0); LYMPHOCYTE # 1.1 TH/MM3 (1.0-4.8); MEAN CELL VOLUME 91.9 FL (80.0-100.0); MEAN CORPUSCULAR HEMOGLOBIN 31.5 PG (27.0-34.0); MEAN CORPUSCULAR HGB CONC 34.3 % (32.0-36.0); MEAN PLATELET VOLUME 9.6 FL (7.0-11.0); MONO % 8.2 % (0.0-8.0); MONOCYTE # 0.7 TH/MM3 (0-0.9); NEUT % 77.1 % (16.0-70.0); PLATELET COUNT 196 TH/MM3 (150-450); RED BLOOD COUNT 3.75 MIL/MM3 (4.50-5.90); RED CELL DISTRIBUTION WIDTH 13.3 % (11.6-17.2); WHITE BLOOD COUNT 8.4 TH/MM3 (4.0-11.0)
[2017-01-22 06:40] LABS: BICARBONATE 24.4 MEQ/L (21.0-32.0); CALCIUM 8.6 MG/DL (8.5-10.1); CREATININE 1.17 MG/DL (0.60-1.30)
[2017-01-22 06:43] LABS: CHOLESTEROL/ HDL RATIO 3.01 RATIO; HDL CHOLESTEROL 40.8 MG/DL (40.0-60.0)
--- NOTE | 2017-01-22 07:01 | MA ---
cc: BRAD REID M.D. DATE 01/21/2017 PROCEDURE PERFORMED 1. Left heart catheterization 2. Left ventriculography 3. Coronary angiography 4. FFR and IFR of the proximal LAD. INDICATIONS 1. Non-STEMI coronary disease. 2. Unstable angina 3. Acute coronary syndrome 4. [place] Cardiovascular Society Class IV angina 5. Near-syncope 6. Coronary artery disease PROCEDURAL STATEMENT The patient was brought to the cardiac catheterization laboratory, prepped and draped in the usual sterile fashion. 10 cc's of 1% lidocaine was used to locally anesthetize the right common femoral artery. A 4-Irish JR-4 and JL-5 catheters were used to perform left and right coronary angiography, left ventriculography. FINDINGS LV pressure is 150/12-15, ejection fraction 60%. The right coronary is nondominant and has no significant disease angiographically. The left circumflex vessel is dominant and has no significant disease. The LAD is a large transapical vessel. The proximal segment is probably 6 mm in diameter. There is a 60% proximal mid stenosis. The first diagonal artery is a large vessel with mild diffuse disease in the ostial proximal segment up to 10% angiographically. The second diagonal artery is a small artery with no significant disease angiographically. The vyh-sh-vgiean LAD is tortuous with a 20% smooth stenosis. The LAD is transapical. The left circumflex vessel is a dominant vessel that has no significant disease angiographically. There is a small ramus intermedius vessel with no significant disease angiographically. The first obtuse marginal vessel has a high takeoff small vessel with no significant disease angiographically. The second obtuse marginal vessel is a large vessel with mild disease in the proximal segment up to 20% angiographically. The left posterior descending coronary artery has no significant disease angiographically. The 6-Irish sheath was exchanged for a 4-Irish sheath. 60 units/kilo of heparin was given for an ACT 250. A 6-Irish XB 4.0 guide, 0.014 [place] pressure wire was placed in the proximal LAD. The introducer was removed. The guide catheter was thoroughly flushed with 20 cc of normal saline. Pressure waveform normalization was then performed. The 0.14 volcano pressure wire was placed into the distal LAD. IFR was 0.93. I then proceeded to FFR with a 140 mcg/kilogram per minute of adenosine for a 3-minute infusion. The maximum FFR was 0.88. At that point in time, PCI was deferred. CONCLUSION 1. Non-STEMI 2. A 60% proximal mid LAD lesion as detailed above. 3. Otherwise, mild two-vessel coronary disease in a right-dominant system as detailed above. 4. Normal LV systolic function with an ejection fraction of 60%. 5. IFR of the proximal mid LAD is equal to 0.93. 6. FFR of the proximal mid LAD equal to 0.88 after three minutes of 140 mcg/kilogram per minute of adenosine infusion. 7. A 60% proximal mid LAD as detailed above. RECOMMENDATIONS Medical management of coronary disease with aspirin, statin, beta-chio and RAISA inhibitor. The patient as been instructed to follow up in as soon as possible after discharge for further evaluation and management. MD ALVIN Owen/MAG /3:55 PM /6:54 AM
--- NOTE | 2017-01-22 07:01 | MA ---
cc: BRAD REID M.D. DATE 01/21/2017 PROCEDURE PERFORMED 1. Left heart catheterization 2. Left ventriculography 3. Coronary angiography 4. FFR and IFR of the proximal LAD. INDICATIONS 1. Non-STEMI coronary disease. 2. Unstable angina 3. Acute coronary syndrome 4. [place] Cardiovascular Society Class IV angina 5. Near-syncope 6. Coronary artery disease PROCEDURAL STATEMENT The patient was brought to the cardiac catheterization laboratory, prepped and draped in the usual sterile fashion. 10 cc's of 1% lidocaine was used to locally anesthetize the right common femoral artery. A 4-Hungarian JR-4 and JL-5 catheters were used to perform left and right coronary angiography, left ventriculography. FINDINGS LV pressure is 150/12-15, ejection fraction 60%. The right coronary is nondominant and has no significant disease angiographically. The left circumflex vessel is dominant and has no significant disease. The LAD is a large transapical vessel. The proximal segment is probably 6 mm in diameter. There is a 60% proximal mid stenosis. The first diagonal artery is a large vessel with mild diffuse disease in the ostial proximal segment up to 10% angiographically. The second diagonal artery is a small artery with no significant disease angiographically. The gex-cu-igebcb LAD is tortuous with a 20% smooth stenosis. The LAD is transapical. The left circumflex vessel is a dominant vessel that has no significant disease angiographically. There is a small ramus intermedius vessel with no significant disease angiographically. The first obtuse marginal vessel has a high takeoff small vessel with no significant disease angiographically. The second obtuse marginal vessel is a large vessel with mild disease in the proximal segment up to 20% angiographically. The left posterior descending coronary artery has no significant disease angiographically. The 6-Hungarian sheath was exchanged for a 4-Hungarian sheath. 60 units/kilo of heparin was given for an ACT 250. A 6-Hungarian XB 4.0 guide, 0.014 [place] pressure wire was placed in the proximal LAD. The introducer was removed. The guide catheter was thoroughly flushed with 20 cc of normal saline. Pressure waveform normalization was then performed. The 0.14 volcano pressure wire was placed into the distal LAD. IFR was 0.93. I then proceeded to FFR with a 140 mcg/kilogram per minute of adenosine for a 3-minute infusion. The maximum FFR was 0.88. At that point in time, PCI was deferred. CONCLUSION 1. Non-STEMI 2. A 60% proximal mid LAD lesion as detailed above. 3. Otherwise, mild two-vessel coronary disease in a right-dominant system as detailed above. 4. Normal LV systolic function with an ejection fraction of 60%. 5. IFR of the proximal mid LAD is equal to 0.93. 6. FFR of the proximal mid LAD equal to 0.88 after three minutes of 140 mcg/kilogram per minute of adenosine infusion. 7. A 60% proximal mid LAD as detailed above. RECOMMENDATIONS Medical management of coronary disease with aspirin, statin, beta-chio and RAISA inhibitor. The patient as been instructed to follow up in as soon as possible after discharge for further evaluation and management. MD ALVIN Owen/MAG /3:55 PM /6:54 AM
--- NOTE | 2017-01-22 07:01 | MA ---
cc: BRAD REID M.D. DATE 01/21/2017 PROCEDURE PERFORMED 1. Left heart catheterization 2. Left ventriculography 3. Coronary angiography 4. FFR and IFR of the proximal LAD. INDICATIONS 1. Non-STEMI coronary disease. 2. Unstable angina 3. Acute coronary syndrome 4. [place] Cardiovascular Society Class IV angina 5. Near-syncope 6. Coronary artery disease PROCEDURAL STATEMENT The patient was brought to the cardiac catheterization laboratory, prepped and draped in the usual sterile fashion. 10 cc's of 1% lidocaine was used to locally anesthetize the right common femoral artery. A 4-Chadian JR-4 and JL-5 catheters were used to perform left and right coronary angiography, left ventriculography. FINDINGS LV pressure is 150/12-15, ejection fraction 60%. The right coronary is nondominant and has no significant disease angiographically. The left circumflex vessel is dominant and has no significant disease. The LAD is a large transapical vessel. The proximal segment is probably 6 mm in diameter. There is a 60% proximal mid stenosis. The first diagonal artery is a large vessel with mild diffuse disease in the ostial proximal segment up to 10% angiographically. The second diagonal artery is a small artery with no significant disease angiographically. The ynk-cx-uhusod LAD is tortuous with a 20% smooth stenosis. The LAD is transapical. The left circumflex vessel is a dominant vessel that has no significant disease angiographically. There is a small ramus intermedius vessel with no significant disease angiographically. The first obtuse marginal vessel has a high takeoff small vessel with no significant disease angiographically. The second obtuse marginal vessel is a large vessel with mild disease in the proximal segment up to 20% angiographically. The left posterior descending coronary artery has no significant disease angiographically. The 6-Chadian sheath was exchanged for a 4-Chadian sheath. 60 units/kilo of heparin was given for an ACT 250. A 6-Chadian XB 4.0 guide, 0.014 [place] pressure wire was placed in the proximal LAD. The introducer was removed. The guide catheter was thoroughly flushed with 20 cc of normal saline. Pressure waveform normalization was then performed. The 0.14 volcano pressure wire was placed into the distal LAD. IFR was 0.93. I then proceeded to FFR with a 140 mcg/kilogram per minute of adenosine for a 3-minute infusion. The maximum FFR was 0.88. At that point in time, PCI was deferred. CONCLUSION 1. Non-STEMI 2. A 60% proximal mid LAD lesion as detailed above. 3. Otherwise, mild two-vessel coronary disease in a right-dominant system as detailed above. 4. Normal LV systolic function with an ejection fraction of 60%. 5. IFR of the proximal mid LAD is equal to 0.93. 6. FFR of the proximal mid LAD equal to 0.88 after three minutes of 140 mcg/kilogram per minute of adenosine infusion. 7. A 60% proximal mid LAD as detailed above. RECOMMENDATIONS Medical management of coronary disease with aspirin, statin, beta-chio and RAISA inhibitor. The patient as been instructed to follow up in as soon as possible after discharge for further evaluation and management. MD ALVIN Owen/MAG /3:55 PM /6:54 AM
[2017-01-22] MEDS: DOCUSATE SODIUM 50 MG/SENNA 8.6 MG TAB PO SCH (09:00)
[2017-01-22] MEDS: SODIUM CHLORIDE 0.9% FLUSH 10 ML FLUSH IV FLUSH SCH (09:00)
[2017-01-22] MEDS: ESCITALOPRAM OXALATE 20 MG TAB PO SCH (10:33)
[2017-01-22] MEDS: CARVEDILOL 3.125 MG TAB PO SCH (10:33)
[2017-01-22] MEDS: ASPIRIN 81 MG CHEW TAB CHEW SCH (10:33)
[2017-01-22] MEDS ORDERED: ASPI81CH25 CHEW (13:19)
[2017-01-22] MEDS ORDERED: CARV3.125 PO (13:19)
[2017-01-22] MEDS ORDERED: LISI2.5T3 PO (13:19)
[2017-01-22] MEDS ORDERED: ATOR80TA45 PO (13:19)
--- NOTE | 2017-01-22 13:20 | HHI.DS ---
Discharge Summary Admission Date Jan 20, 2017 at 08:34 Discharge Date: Jan 22, 2017 Admitting Diagnosis chest pain, presyncopal episode (1) NSTEMI (non-ST elevated myocardial infarction) ICD Code: I21.4 - Non-ST elevation (NSTEMI) myocardial infarction (2) HTN (hypertension) ICD Code: I10 - Essential (primary) hypertension Procedures s/p cardiac cath Brief History - From Admission Patient is 61-year-old male with past medical history of hypertension, depression, chronic back and knee pain, squamous cell carcinoma presents to the emergency room because of chest pain. Patient states that he was at the junk [place] getting some used car parts fand was underneath a car taking out a bolt when he suddenly felt lightheaded and dizzy. He sat down for a few minutes then became diaphoretic and started experiencing pain on the left shoulder. He also noted some shortness of breath. He denied any nausea or vomiting or abdominal pain. He also said that he saw "stars ". He states that he was sitting in the shade and there was a very nice breeze however he was still diaphoretic. He denies any burning with urination or increased urinary frequency. Currently he is chest pain-free. He has never had a heart attack in the past. He has no other complaints. He denies any sore throat, runny nose , cough. CBC/BMP: 01/22/17 0453 01/22/17 0453 Significant Findings Laboratory Tests Test 01/19/17 13:45 01/19/17 13:54 01/19/17 20:22 01/20/17 01:00 Red Blood Count 4.05 MIL/MM3 (4.50-5.90) Hemoglobin 12.6 GM/DL (13.0-17.0) Hematocrit 37.8 % (39.0-51.0) Neutrophils (%) (Auto) 74.5 % (16.0-70.0) Monocytes (%) (Auto) 8.6 % (0.0-8.0) Troponin I 0.07 NG/ML (0.02-0.05) 0.98 NG/ML (0.02-0.05) 0.70 NG/ML (0.02-0.05) Blood Urea Nitrogen 26 MG/DL (7-18) Creatinine 1.57 MG/DL (0.60-1.30) Random Glucose 111 MG/DL (74-106) Estimat Glomerular Filtration Rate 45 ML/MIN (>89) Test 01/20/17 08:04 01/20/17 09:20 01/20/17 09:37 01/20/17 16:56 Blood Urea Nitrogen 21 MG/DL (7-18) Chloride Level 108 MEQ/L (98-107) Estimat Glomerular Filtration Rate 56 ML/MIN (>89) Red Blood Count 3.86 MIL/MM3 (4.50-5.90) Hemoglobin 12.0 GM/DL (13.0-17.0) Hematocrit 35.6 % (39.0-51.0) Activated Partial Thromboplast Time 34.3 SEC (24.3-30.1) Test 01/20/17 22:41 01/21/17 06:15 01/22/17 04:53 Activated Partial Thromboplast Time 41.3 SEC (24.3-30.1) 38.3 SEC (24.3-30.1) Red Blood Count 3.71 MIL/MM3 (4.50-5.90) 3.75 MIL/MM3 (4.50-5.90) Hemoglobin 11.6 GM/DL (13.0-17.0) 11.8 GM/DL (13.0-17.0) Hematocrit 34.7 % (39.0-51.0) 34.5 % (39.0-51.0) Blood Urea Nitrogen 20 MG/DL (7-18) Calcium Level 8.3 MG/DL (8.5-10.1) Chloride Level 108 MEQ/L (98-107) Estimat Glomerular Filtration Rate 56 ML/MIN (>89) 63 ML/MIN (>89) Neutrophils (%) (Auto) 77.1 % (16.0-70.0) Monocytes (%) (Auto) 8.2 % (0.0-8.0) Imaging Last Impressions Chest X-Ray 01/19/17 0000 Signed Impressions: Service Date/Time: Thursday, January 19, 2017 14:01 - CONCLUSION: No evidence of acute cardiopulmonary disease. Michele Rosenbaum MD Carotid Artery Ultrasound 01/19/17 0000 Signed Impressions: Service Date/Time: Thursday, January 19, 2017 18:41 - CONCLUSION: 1. No evidence for hemodynamically significant stenosis of either carotid artery. 2. Antegrade flow in the bilateral vertebral arteries. Ever Corea MD PE at Discharge GENERAL: awake and alert, sitting up in bed. EYES: No scleral icterus. No injection or drainage. NECK: Supple, trachea midline. CARDIOVASCULAR: Regular rate and rhythm without murmurs RESPIRATORY: Breath sounds equal bilaterally. No accessory muscle use. GASTROINTESTINAL: Abdomen soft, non-tender, nondistended. MUSCULOSKELETAL: No edema. Pt update on day of discharge Pt feels well. denies any CP/SOB/N/V Hospital Course Patient is 61-year-old male with past medical history of hypertension, depression, chronic back and knee pain, squamous cell carcinoma presents to the emergency room because of chest pain. Patient states that he was at the junk yard getting some used car parts fand was underneath a car taking out a bolt when he suddenly felt lightheaded and dizzy. He sat down for a few minutes then became diaphoretic and started experiencing pain on the left shoulder. He also had dyspnea. He was subsequently admitted to the hospital. - NSTEMI - Troponins 0.07, 0.98, 0.70. Currently chest pain free. - on heparin drip. - s/p cardiac cath showin% proximal mid LAD lesion. Medical management. w ASA, BB, Evan-inh and statin. Script in chart. - ECHO shows an EF of 50%. Pt to f/u w Dr. Crowe tomorrow 01/23/17. Pt voices his understanding. - Pre-syncope - Carotid US unremarkable. Dr. Mcfadden (previous hospitalist on case) discussed with neurology. Patient has no focal neurological deficits. - No further neurological work up at this point. Pt Condition on Discharge: Stable Discharge Disposition: Discharge Home Discharge Time: > 30 minutes Discharge Instructions Follow up Referrals: Cardiology - 01/23/17 PCP Follow-up - 1 Week New Medications: Lisinopril (Lisinopril) 2.5 Mg Tab 2.5 MG PO DAILY, #30 TAB 0 Refills Aspirin (Aspirin Low Strength) 81 Mg Chew 81 MG CHEW DAILY, #30 EA Atorvastatin (Atorvastatin) 80 Mg Tab 80 MG PO HS, #30 TAB Carvedilol (Coreg) 3.125 Mg Tab 3.125 MG PO Q12HR, #60 TAB Continued Medications: Escitalopram (Escitalopram) 20 Mg Tab 20 MG PO DAILY, #30 TAB 0 Refills Tramadol (Tramadol) 50 Mg Tab 50 MG PO Q4H PRN for PAIN, TAB 0 Refills Discontinued Medications: Lisinopril (Lisinopril) 40 Mg Tab 40 MG PO AC BREAKFAST for Blood Pressure Management, #30 TAB 0 Refills Lisinopril (Lisinopril) 20 Mg Tab 20 MG PO AC DINNER, #30 TAB 0 Refills Nichole Sloan MD Jan 22, 2017 13:20
--- NOTE | 2017-01-22 13:20 | PD.CARD.PN ---
Subjective Subjective Remarks alert in nad, denies chest pain Objective Medications Current Medications Medications (Trade) Dose Ordered Sig/Edilberto Route Start Time Stop Time Status Last Admin (Zofran Inj) 4 mg Q6H PRN IVP 01/19/17 16:30 (Narcan Inj) 0.4 mg UNSCH PRN IV PUSH 01/19/17 16:30 (Nahed-Colace) 1 tab BID PO 01/19/17 21:00 01/21/17 21:28 (Milk Of Magnesia Liq) 30 ml Q12H PRN PO 01/19/17 16:30 (Senokot) 17.2 mg Q12H PRN PO 01/19/17 16:30 (Dulcolax Supp) 10 mg DAILY PRN RECTAL 01/19/17 16:30 (Lactulose Liq) 30 ml DAILY PRN PO 01/19/17 16:30 (Morphine Inj) 1 mg Q4H PRN IM 01/19/17 16:30 01/21/17 21:26 (Nitroglycerin 2% Oint) 0.5 inch Q6H PRN TOPICAL 01/19/17 17:00 (Coreg) 3.125 mg Q12HR PO 01/19/17 21:00 01/22/17 10:33 (Catapres) 0.1 mg Q6H PRN PO 01/19/17 16:45 Sodium Chloride 1,000 ml @ 84 mls/hr [id number] IV 01/19/17 17:00 01/22/17 10:37 (Lexapro) 20 mg DAILY PO 01/20/17 09:00 01/22/17 10:33 (Lipitor) 80 mg HS PO 01/20/17 21:00 01/21/17 21:28 (Aspirin Chew) 81 mg DAILY CHEW 01/21/17 09:00 01/22/17 10:33 (Ultram) 100 mg Q4H PRN PO 01/20/17 15:00 01/22/17 05:13 (Tylenol) 650 mg Q4H PRN PO 01/20/17 14:00 (NS Flush) 2 ml UNSCH PRN IV FLUSH 01/21/17 17:00 (NS Flush) 2 ml BID IV FLUSH 01/21/17 21:00 01/22/17 09:00 Vital Signs / I&O Vital Signs Date Time Temp Pulse Resp B/P (MAP) Pulse Ox O2 Delivery O2 Flow Rate FiO2 01/22/17 07:54 20 01/22/17 06:00 90 01/22/17 05:00 50 01/22/17 04:00 52 01/22/17 03:00 98.2 55 16 117/74 (88) 96 01/22/17 03:00 55 01/22/17 02:00 54 01/22/17 01:00 64 01/22/17 00:00 54 01/22/17 00:00 98.0 59 16 119/76 (90) 96 01/21/17 23:00 55 01/21/17 22:00 64 01/21/17 21:00 58 01/21/17 20:00 98.5 59 14 139/83 (101) 98 01/21/17 20:00 58 01/21/17 19:30 63 18 151/84 (106) 98 01/21/17 19:15 98.1 65 18 142/115 (124) 100 01/21/17 19:00 98.1 65 18 142/115 (124) 100 01/21/17 19:00 66 01/21/17 19:00 66 01/21/17 18:21 18 01/21/17 18:00 64 01/21/17 17:00 54 01/21/17 16:00 60 01/21/17 16:00 62 01/21/17 14:00 50 I/O 01/21/17 01/21/17 01/21/17 01/22/17 01/22/17 01/22/17 07:00 15:00 23:00 07:00 15:00 23:00 Intake Total 1515 ml 360 ml 750 ml Output Total 700 ml 1850 ml Balance 1515 ml -340 ml -1100 ml Intake Oral 480 ml 360 ml 240 ml IV Total 1035 ml 510 ml Output Urine Total 700 ml 1850 ml # Voids 2 3 # Bowel Movements 1 Physical Exam GENERAL: SKIN: Warm and dry. HEAD: Normocephalic. EYES: No scleral icterus. No injection or drainage. NECK: Supple, trachea midline. No JVD or lymphadenopathy. CARDIOVASCULAR: Regular rate and rhythm without murmurs, gallops, or rubs. RESPIRATORY: Breath sounds equal bilaterally. No accessory muscle use. GASTROINTESTINAL: Abdomen soft, non-tender, nondistended. MUSCULOSKELETAL: No cyanosis, or edema. BACK: Nontender without obvious deformity. No CVA tenderness. Laboratory Laboratory Tests Test 01/22/17 04:53 White Blood Count 8.4 TH/MM3 Red Blood Count 3.75 MIL/MM3 Hemoglobin 11.8 GM/DL Hematocrit 34.5 % Mean Corpuscular Volume 91.9 FL Mean Corpuscular Hemoglobin 31.5 PG Mean Corpuscular Hemoglobin Concent 34.3 % Red Cell Distribution Width 13.3 % Platelet Count 196 TH/MM3 Mean Platelet Volume 9.6 FL Neutrophils (%) (Auto) 77.1 % Lymphocytes (%) (Auto) 12.4 % Monocytes (%) (Auto) 8.2 % Eosinophils (%) (Auto) 2.1 % Basophils (%) (Auto) 0.2 % Neutrophils # (Auto) 6.5 TH/MM3 Lymphocytes # (Auto) 1.1 TH/MM3 Monocytes # (Auto) 0.7 TH/MM3 Eosinophils # (Auto) 0.2 TH/MM3 Basophils # (Auto) 0.0 TH/MM3 CBC Comment DIFF FINAL Differential Comment Blood Urea Nitrogen 16 MG/DL Creatinine 1.17 MG/DL Random Glucose 79 MG/DL Calcium Level 8.6 MG/DL Sodium Level 138 MEQ/L Potassium Level 4.6 MEQ/L Chloride Level 106 MEQ/L Carbon Dioxide Level 24.4 MEQ/L Anion Gap 8 MEQ/L Estimat Glomerular Filtration Rate 63 ML/MIN Total Creatine Kinase 57 U/L Triglycerides Level 122 MG/DL Cholesterol Level 123 MG/DL LDL Cholesterol 58 MG/DL HDL Cholesterol 40.8 MG/DL Cholesterol/HDL Ratio 3.01 RATIO Assessment and Plan Problem List: (1) NSTEMI (non-ST elevated myocardial infarction) ICD Codes: I21.4 - Non-ST elevation (NSTEMI) myocardial infarction (2) Pre-syncope ICD Codes: R55 - Syncope and collapse Status: Acute (3) Chest pain in adult ICD Codes: R07.9 - Chest pain, unspecified Status: Acute Assessment and Plan 1.) NSTEMI - continue aspirin, coreg, lipitor, assymptomatic, f/u with me in office 01/23/17 d/w patient Ernesto Crowe MD Jan 22, 2017 13:20
--- NOTE | 2017-01-22 19:01 | EKG ---
Date Performed: 01/21/2017 Time Performed: 18:53:46 PTAGE: 61 years EKG: Sinus rhythm with borderline 1st degree A-V block Leftward axis Lateral T wave changes are nonspecific Borderline ECG Compared to prior tracing no significant change PREVIOUS TRACING : 01/20/2017 01.06 DOCTOR: Dolores Mckenna Interpretating Date/Time 01/22/2017 19:00:05
--- NOTE | 2017-01-22 19:02 | EKG ---
Date Performed: 01/22/2017 Time Performed: 05:26:30 PTAGE: 61 years EKG: Sinus bradycardia with borderline 1st degree A-V block Lateral T wave changes are nonspecif ic Borderline ECG Compared to prior tracing no significant change PREVIOUS TRACING : 01/21/2017 18.53 DOCTOR: Dolores Mckenna Interpretating Date/Time 01/22/2017 19:00:14
== END 2017-01-22 14:09 | disposition home or self-care (01) | DRG 281 ==
LOC: NEPE 13:11 → NEDA 15:51 → NEPGCP 17:21 → OBSVTOIN 01-20 08:34 → HCIS 01-20 11:48
PROVIDERS: ADMIT Hospitalist; ATTEND Hospitalist
PROC: B2111ZZ Fluoroscopy of Multiple Coronary Arteries using Low Osmolar Contrast (ICD-10-PCS; 2017-01-21)
PROC: B2151ZZ Fluoroscopy of Left Heart using Low Osmolar Contrast (ICD-10-PCS; 2017-01-21)
PROC: 4A033BC Measurement of Arterial Pressure, Coronary, Percutaneous Approach (ICD-10-PCS; 2017-01-21)
PROC: 4A023N7 Measurement of Cardiac Sampling and Pressure, Left Heart, Percutaneous Approach (ICD-10-PCS; principal; 2017-01-21 15:00)
DX: I21.4 Non-ST elevation (NSTEMI) myocardial infarction (principal); N17.9 Acute kidney failure, unspecified; C77.9 Secondary and unspecified malignant neoplasm of lymph node, unspecified; I10 Essential (primary) hypertension; G47.30 Sleep apnea, unspecified; I25.110 Atherosclerotic heart disease of native coronary artery with unstable angina pectoris; Z85.828 Personal history of other malignant neoplasm of skin; Z79.82 Long term (current) use of aspirin; F32.9 Major depressive disorder, single episode, unspecified; R55 Syncope and collapse
CPT/HCPCS: 71010; 80048; 80061; 82272; 82550; 84484; 85002; 85025; 85027; 85610; 85730; 93005; 93306; 93458; 93571; 93880; 96360; 96361; 96372; 99152; 99153; C1769; C1887; C1893; G0378; J0153; J1644; J1650; J2250; J2270; J7030; Q9967